=== PATIENT | female | born 1950 | race Caucasian/White ===

== ENCOUNTER → 2016-10-15 | Outpatient (CLI) | payer OTHER ==
--- NOTE | 2016-10-15 10:31 | REPMRS ---
Patient History The patient states she had a clinical breast exam in 10/11 Patient is postmenopausal and had first child at age 34. Family history of breast cancer in mother at age 66 and prostate cancer in brother at age 64. Taking unspecified hormones for 6 years. Digital Woman Screen Mammo: October 15, 2016 - Exam #: [id number] Bilateral CC and MLO view(s) were taken. Technologist: Sinai Hylton, Technologist Prior study comparison: October 13, 2015, digital woman screen mammo performed at [facility] to Woman. October 09, 2014, digital woman screen mammo performed at [facility] to Woman. October 02, 2013, digital woman screen mammo performed at [facility] to [facility]. FINDINGS: There are scattered fibroglandular densities. There is a moderate amount of residual fibroglandular tissue which is fairly symmetric. There is no interval development of dominant mass, architectural distortion, or clustered microcalcification typical of malignancy. There has been no change in the appearance of the mammogram from the prior studies. ASSESSMENT: BI-RADS/ACR category 1 mammogram. Negative. Recommendation Routine screening mammogram of both breasts in 1 year (for women over age 40). This mammogram was interpreted with the aid of an FDA-approved computer-aided dectection system. Electronically Signed By: Derrell Chadwick MD 10/15/16 0694
== END ==
LOC: M WHC 08:58
PROVIDERS: ATTEND Nurse Practitioner Family
DX: Z12.31 Encounter for screening mammogram for malignant neoplasm of breast (principal)

== ENCOUNTER 2017-04-15 07:16 | Day surgery (SDC) | payer OTHER ==
[~2017-04-15] VITALS: Ht 154.9 cm; Wt 56.2 kg
[~2017-04-15 07:16] MED LIST: B121000T IM; CYAN1000VL IM; LEVO100T5 PO; NASA1SPR
[2017-04-15] MEDS ORDERED: NS 1,000 ML IV SCH (07:30)
[2017-04-15] MEDS ORDERED: ESTR62CR PV (08:08)
--- NOTE | 2017-04-15 08:53 | ROOR ---
Patient Name: Shilpa Benavides Procedure Date: 04/15/2017 8:27 AM Date of : 1950 Age: 66 Room: [facility] Gender: Female Note Status: Finalized Procedure: Total Colonoscopy to Cecum Indications: Screening for colorectal malignant neoplasm, Last colonoscopy 10 years ago Providers: Brian Vela MD Referring MD: ORI KUMARI DO Requesting Provider: Medicines: Monitored Anesthesia Care Complications: No immediate complications. Procedure: Pre-Anesthesia Assessment: - The heart rate, respiratory rate, oxygen saturations, blood pressure, adequacy of pulmonary ventilation, and response to care were monitored throughout the procedure. The Colonoscope was introduced through the anus and advanced to the cecum, identified by appendiceal orifice and ileocecal valve. The colonoscopy was performed without difficulty. The patient tolerated the procedure well. The quality of the bowel preparation was excellent. Findings: The perianal and digital rectal examinations were normal. Non-bleeding internal hemorrhoids were found during retroflexion. The hemorrhoids were small and Grade I (internal hemorrhoids that do not prolapse). No other significant abnormalities were identified in a careful examination of the remainder of the colon. The exam was otherwise without abnormality on direct and retroflexion views. Impression: - Non-bleeding internal hemorrhoids. - The examination was otherwise normal on direct and retroflexion views. - No specimens collected. - The exam was otherwise normal to the cecum. Recommendation: - Patient has a contact number available for emergencies. The signs and symptoms of potential delayed complications were discussed with the patient. Return to normal activities tomorrow. Written discharge instructions were provided to the patient. - High fiber diet. - Discharge patient to home. - Continue present medications. - Repeat colonoscopy in 10 years for screening purposes. - Return to referring physician. - The findings and recommendations were discussed with the patient's family. Brian Vela MD Brian Vela MD 04/15/2017 8:52:36 AM This report has been signed electronically. Number of Addenda: 0 Note Initiated On: 04/15/2017 8:27 AM Estimated Blood Loss: Estimated blood loss: none.
[2017-04-15] MEDS ORDERED: PROPOFOL 200 MG/20 ML VIAL As Ordered ONE (09:01)
[2017-04-15 09:10] VITALS: BP 127/86
== END 2017-04-15 09:23 | disposition home or self-care (01) ==
LOC: M OPP 07:16 → EDSTATUS 08:30 → M OPP 09:23
PROVIDERS: ATTEND Internal Medicine Gastroenterology
DX: Z12.11 Encounter for screening for malignant neoplasm of colon (principal); K64.0 First degree hemorrhoids; E03.9 Hypothyroidism, unspecified; M19.90 Unspecified osteoarthritis, unspecified site; D64.9 Anemia, unspecified; Z78.0 Asymptomatic menopausal state; Z88.0 Allergy status to penicillin; Z88.2 Allergy status to sulfonamides; Z88.1 Allergy status to other antibiotic agents; Z79.899 Other long term (current) drug therapy; Z79.82 Long term (current) use of aspirin; Z80.3 Family history of malignant neoplasm of breast; Z80.42 Family history of malignant neoplasm of prostate

== ENCOUNTER → 2017-10-17 | Outpatient (REF) | payer OTHER | LOC: M SFHCWAGY 09:35 | DX: Z12.4 Encounter for screening for malignant neoplasm of cervix (principal) | CPT/HCPCS: G0123 ==

== ENCOUNTER → 2017-10-17 | Outpatient (CLI) | payer OTHER | LOC: M WHC 08:57 | DX: Z12.31 Encounter for screening mammogram for malignant neoplasm of breast (principal); M81.0 Age-related osteoporosis without current pathological fracture; Z13.820 Encounter for screening for osteoporosis; M85.80 Other specified disorders of bone density and structure, unspecified site; Z78.0 Asymptomatic menopausal state; Z80.3 Family history of malignant neoplasm of breast; Z92.29 Personal history of other drug therapy ==

== ENCOUNTER → 2018-10-24 | Outpatient (CLI) | payer MEDICARE, OTHER ==
[~2018-10-24] MED LIST changes: +ESTR62CR PV
--- NOTE | 2018-10-24 12:21 | REPMRS ---
Patient History The patient states she had a clinical breast exam in 09/2018. Patient is postmenopausal and had first child at age 34. Family history of breast cancer at age 66 in mother, prostate cancer at age 64 in brother. Taking unspecified hormones for 8 years. 3D TOMOSYNTHESIS WAS PERFORMED. Digital Woman Screen Mammo: October 24, 2018 - Exam #: [id number] Bilateral CC and MLO view(s) were taken. Technologist: Fatmata Bray, Technologist Prior study comparison: October 17, 2017, digital woman screen mammo performed at [facility]. October 15, 2016, digital woman screen mammo performed at [facility] [employer] to [facility]. FINDINGS: The breast tissue is heterogeneously dense. This may lower the sensitivity of mammography. There has been no change in the appearance of the mammogram from the prior studies. There is a moderate amount of residual fibroglandular tissue which is fairly symmetric. There is no interval development of dominant mass, areas of architectural distortion, or clustered microcalcification typical of malignancy. Assessment: BI-RADS/ACR category 1 mammogram. Negative Mammogram. Recommendation Routine screening mammogram in 1 year (for women over age 40). This mammogram was interpreted with the aid of an FDA-approved computer-aided dectection system. Electronically Signed By: Lauro Luis MD 10/24/18 2906
== END ==
LOC: M WHC 09:53
PROVIDERS: ATTEND Nurse Practitioner Family
DX: Z01.419 Encounter for gynecological examination (general) (routine) without abnormal findings (principal); Z12.31 Encounter for screening mammogram for malignant neoplasm of breast; Z78.0 Asymptomatic menopausal state; Z92.29 Personal history of other drug therapy; Z80.3 Family history of malignant neoplasm of breast
CPT/HCPCS: 77063; 77067; G0101

== ENCOUNTER → 2019-10-24 | Outpatient (CLI) | payer MEDICARE, BC ==
[~2019-10-24] MED LIST changes: +CALC600T60 PO; +D-40TAB2 PO; +ESTR0.1C5; +FISH1000 PO; +THERTAB52 PO
--- NOTE | 2019-10-24 11:47 | REPMRS ---
Patient History The patient states she had a clinical breast exam in September 2019. Patient is postmenopausal and had first child at age 34. Family history of breast cancer at age 66 in mother, prostate cancer at age 64 in brother. Taking unspecified hormones for 8 years. Digital Woman Screen Mammo: October 24, 2019 - Exam #: [id number] Bilateral CC and MLO view(s) were taken. Technologist: Li Montenegro, Technologist Prior study comparison: October 24, 2018, bilateral digital woman screen mammo performed at [facility]. October 17, 2017, digital woman screen mammo performed at [facility]. October 15, 2016, digital woman screen mammo performed at [facility]. FINDINGS: There are scattered fibroglandular densities. There has been no change in the appearance of the mammogram from the prior studies. There is a mild amount of scattered fibroglandular density which is fairly symmetric. There is no interval development of dominant mass, architectural distortion, or grouped microcalcification suggestive of malignancy. 3-D tomosynthesis shows no additional findings. Assessment: BI-RADS/ACR category 1 mammogram. Negative Mammogram. Recommendation Routine screening mammogram of both breasts in 1 year (for women over age 40). This patient's Lifetime Breast Cancer Risk is estimated at 18.5 %. This mammogram was interpreted with the aid of an FDA-approved computer-aided dectection system. Electronically Signed By: Derrell Chadwick MD 10/24/19 4480
--- NOTE | 2019-11-01 14:08 | DEXA ---
AP SPINE L1 - L4 1.183 -0.1 1.5 LT FEMUR TOTAL 0.895 -0.9 0.4 LT NECK 0.852 -1.3 0.2 RT FEMUR TOTAL 0.929 -0.6 0.7 RT NECK 0.865 -1.2 0.3 TOTAL BODY TOTAL OTHER COMMENTS: Normal bone densitometry of the spine. There is low bone density of the hips. The density of the spine is increased 5.4% since initial exam on 05/22/2003. The increased 1.4% since the most recent exam on 10/17/2017. The density of the left hip has decreased 10.1% since the initial exam on 05/22/2003. The density of the left hip has increased 0.2% since the most recent exam on 10/17/2017. The density of the right hip has decreased 11.0% since initial exam on 05/22/2003. The density of the right hip has decreased 2.2% since the most recent exam on 10/17/2012. FOLLOW-UP: Recommendation for the next bone density exam: 2 years. ANTHONY
== END ==
LOC: M WHC 09:53
PROVIDERS: ATTEND Nurse Practitioner Family
DX: Z12.31 Encounter for screening mammogram for malignant neoplasm of breast (principal); Z78.0 Asymptomatic menopausal state; Z90.3 Acquired absence of stomach [part of]; Z80.42 Family history of malignant neoplasm of prostate; Z92.29 Personal history of other drug therapy
CPT/HCPCS: 77063; 77067; 77080; G0463

== ENCOUNTER → 2020-05-12 | Outpatient (CLI) | payer MEDICARE, BC ==
[~2020-05-12] MED LIST changes: -CALC600T60 PO; -D-40TAB2 PO; -ESTR0.1C5; -FISH1000 PO; -THERTAB52 PO
--- NOTE | 2020-05-12 17:00 | REP ---
INDICATION: N95.0 POST MENOPAUSAL BLEEDING. COMPARISON: 10/03/2007 TECHNIQUE: Transvesical and transvaginal imaging FINDINGS: The uterus measures 7.4 x 3.3 x 5.2 cm. The parenchymal echo pattern is within normal limits. The endometrial echo complex is mildly thickened measuring 1 cm in thickness and is somewhat heterogenous. The right ovary measures 1.8 x 0.8 x 1.8 cm and is within normal limits. The left ovary was not seen transvesically or transvaginally. There is no free fluid in the cul-de-sac. The urinary bladder measures 7.4 x 9.2 x 7.2 centimeters. IMPRESSION: 1. Mildly thickened endometrium as described above. 2. Nonvisualization of the left ovary. <Electronically signed by Vincent Patel > 05/12/20 7975
== END ==
LOC: M WHC 13:15
PROVIDERS: ATTEND Nurse Practitioner Family
DX: N95.0 Postmenopausal bleeding (principal)

== ENCOUNTER → 2020-07-27 | Outpatient (CLI) | payer MEDICARE, BC ==
[~2020-07-27] MED LIST changes: +CALC600T60 PO; +D-40TAB2 PO; +ESTR0.1C5; +FISH1000 PO; +THERTAB52 PO
== END ==
LOC: M LABSMTC 09:33
PROVIDERS: ATTEND Anesthesiology
DX: Z01.812 Encounter for preprocedural laboratory examination (principal); Z20.822 Contact with and (suspected) exposure to COVID-19

== ENCOUNTER 2020-08-01 08:21 | Day surgery (SDC) | payer MEDICARE, BC ==
[~2020-08-01] VITALS: Ht 154.9 cm; Wt 56.2 kg
[~2020-08-01 08:21] MED LIST changes: -CALC600T60 PO; -D-40TAB2 PO; -ESTR0.1C5; -FISH1000 PO; +LR 1,000 ML IV ONE
--- OUTSIDE RECORDS SUMMARY | 2020-08-01 08:30 | CCD ---
Author Author [facility] Organization [facility] Address Unknown Phone Unavailable Care Team Providers Care Beer Coil Cleaner Name Role Phone Arielle Lyons Unavailable PROBLEMS Type Condition ICD9-CM Code [id number] Code Onset Dates Condition S tatus SNOMED Code Notes Problem Unspecified hypothyroidism E03.9 Active 23851 008 Problem Post-menopause bleeding N95.0 Active 14125473 Problem Endometrial thickening on ultrasound R93.89 Act earl 112761859 Problem Senile osteoporosis M81.0 Active 02331726 Problem Osteoporosis M81.0 Active 53865518 Problem Vaginal atrophy N95.2 Active 724570837 Problem Vulvodynia, 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 Active 31159341 9 ALLERGIES Allergen (clinical drug ingredient) Drug/Non Drug Allergy do cumented on EMR Reaction Allergy Type Onset Date Status clindamycin Clindamycin HCl([facility] Code:[address]-72) Nausea/V omiting Drug Allergy Active Sulfa (for allergy use only) hives Drug Allergy Active Penicillin (For Allergies Use Only) Hives Drug Allerg y Active erythromycin Erythromycin(ND Code:[address]-85) abdominal c ramps, diarrhea Drug Allergy Active ENCOUNTERS from 1950 to 2020-07-14 Encounter Location Date Provider Diagnosis [facility] [address] [place] [phone] Jun, Arielle Lyons IMMUNIZATIONS No Information SOCIAL HISTORY Tobacco Use: Social History Observation Description Date Details (start date - stop date) Never Smoker Sex Assigned At : Social History Observation Description Sex Assigned At Unknown Alcohol Screening: Question Answer Notes Did you have a drink containing alcohol in the past year? Ye s Points 3 Interpretation Positive How often did you have six or more drinks on one occas ion in the past year? Never (0 points) How many drinks did you have on a typica l day when you were drinking in the past year? 1 or 2 (0 points) How often did you have a drink containing alcohol in t he past year? Two to three times per week (3 points) Tobacco Use: Question Answer Notes Are you a: never smoker never smoker REASON FOR REFERRAL No Information VITAL SIGNS No information MEDICATIONS Medication SIG (Take, Route, Frequency, Duration) Notes Start Da te End Date Status Vitamin D-400 400 UNIT 1 capsules Orally Once a day Active Premarin 0.625 MG/GM 1/2 gram Vaginal 2 x weekly @ hs for 90 day s Sep, Not-Taking Multivitamins OTC 1 tab(s) Orally every other day Active Vitamin B12 1000 MCG 1 tablet Orally Once a day for 30 day(s) Not-Taking Nasonex 50 MCG/ACT 2 puffs in each nostril Nasally as needed for 30 day(s) Not-Taking Vitamin B-12 1000 MCG injection IM monthly Not-Taking Fish Oil 1000 mg 1 cap(s) Orally three times weekly Active Caltrate 600+D 600-400 MG-UNIT 1 tablet Orally daily for 30 day(s) Active Aspirin EC 81 MG 1 tablet Orally every other day for 30 day(s) Not-Taking Estradiol 0.1 MG/GM 1/2 gm Vaginal Two times a Week for 90 days Sep, Not-Taking Levothyroxine Sodium 100 MCG 1 tab(s) Orally once a day Active Lotrisone 1-0.05 % 1 application to vulva Exter evelyn perineum Twice a day, for 7 days Sep, Active Premarin 0.625 MG/GM 1 GM Vaginal twice a week for 90 day(s) Not-Taking Nasacort AQ Active Vitamin B12 1000 MCG 1 tablet Orally Once a day for 30 day(s) Active PredniSONE (Andrew) Not-Taki ng PROCEDURES No Information RESULTS No Results REASON FOR VISIT AUTHORIZATION MEDICAL (GENERAL) HISTORY Type Description Date Medical History hypothyroidism Medical History B 12 deficiency Medical History vaginismus Medical History osteoporosis, hips Medical History rosacea Medical History lifetime breast cancer risk 20.2 % decl ammy annual MRI Surgical History C section Surgical History fracture repair-left foot Surgical History cholecystectomy Surgical History umbilical hernia repair Surgical History LEEP and EMB 2001 Surgical History colonoscopy 2006, 2016 Surgical History colposcopy Goals Section No Information Health Concerns No Information MEDICAL EQUIPMENT No Information MENTAL STATUS No Information FUNCTIONAL STATUS No Information ASSESSMENTS No Information PLAN OF TREATMENT Next Appt Details Provider Name:Arielle Lyons, 2020-08-01 1 0:00:00 AM, [address] [place] [address], [phone], Provider Name:Arielle Lyons, 2020-08-27 0 2:40:00 PM, [address] [place] [address], [phone], Provider Name:Shelley Melo, 2020-10-23 09:30:00 AM, [address] [place] [address], [phone], Insurance Providers Payer Name Payer Address Payer Phone Insured Name Patient Relati onship to Insured Coverage Start Date Coverage End Date [employer] PPO [id number] [address] PRERNA TUCKER MEDICARE Part A and B [address] [place] [phone] PRERNA TUCKER self
--- OUTSIDE RECORDS SUMMARY | 2020-08-01 08:30 | CCD ---
Author Author [facility] Organization [facility] Address Unknown Phone Unavailable Care Team Providers Care Detention Attendant Name Role Phone Shelley Melo Unavailable PROBLEMS Type Condition ICD9-CM Code [id number] Code Onset Dates Condition S tatus SNOMED Code Notes Problem Unspecified hypothyroidism E03.9 Active 21883 008 Problem Post-menopause bleeding N95.0 Active 11208597 Problem Endometrial thickening on ultrasound R93.89 Act earl 066244832 Problem Senile osteoporosis M81.0 Active 98153522 Problem Osteoporosis M81.0 Active 32918849 Problem Vaginal atrophy N95.2 Active 912796638 Problem Vulvodynia, 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 Active 65963579 9 ALLERGIES Allergen (clinical drug ingredient) Drug/Non Drug Allergy do cumented on EMR Reaction Allergy Type Onset Date Status clindamycin Clindamycin HCl([facility] Code:[address]-44) Nausea/V omiting Drug Allergy Active Sulfa (for allergy use only) hives Drug Allergy Active Penicillin (For Allergies Use Only) Hives Drug Allerg y Active erythromycin Erythromycin(ND Code:[address]-43) abdominal c ramps, diarrhea Drug Allergy Active ENCOUNTERS from 1950 to 2020-06-09 Encounter Location Date Provider Diagnosis [facility] [address] [place] [phone] May, Shelley Melo IMMUNIZATIONS No Information SOCIAL HISTORY Tobacco Use: Social History Observation Description Date Details (start date - stop date) Never Smoker Sex Assigned At : Social History Observation Description Sex Assigned At Unknown Education: Question Answer Notes Level of Education: Graduate Language: Question Answer Notes Languages spoken: Amharic Sikh: Question Answer Notes Sikh 21 Religion Alcohol Screening: Question Answer Notes Did you [...] Notes Start Da te End Date Status PredniSONE (Andrew) Not-Taki ng Levothyroxine Sodium 125 MCG 1 tab(s) Orally once a day Active Vitamin D-400 400 UNIT 1 capsules Orally Once a day Active Caltrate 600+D 600-400 MG-UNIT 1 tablet Orally daily for 30 day(s) Active Vitamin B12 1000 MCG 1 tablet Orally Once a day for 30 day(s) Active Vitamin B12 1000 MCG 1 tablet Orally Once a day for 30 day(s) Not-Taking Lotrisone 1-0.05 % 1 application to vulva Exter evelyn perineum Twice a day, for 7 days Sep, Active Fish Oil 1000 mg 1 cap(s) Orally three times weekly Active Vitamin B-12 1000 MCG injection IM monthly Not-Taking Premarin 0.625 MG/GM 1 GM Vaginal twice a week for 90 day(s) Not-Taking Estradiol 0.1 MG/GM 1/2 gm Vaginal Two times a Week for 90 days Sep, Active Aspirin EC 81 MG 1 tablet Orally every other day for 30 day(s) Not-Taking Nasonex 50 MCG/ACT 2 puffs in each nostril Nasally as needed for 30 day(s) Not-Taking Nasacort AQ Active Multivitamins OTC 1 tab(s) Orally every other day Active Premarin 0.625 MG/GM 1/2 gram Vaginal 2 x weekly @ for 90 day s Sep, Not-Taking PROCEDURES No Information RESULTS No Results REASON FOR VISIT Estradiol use MEDICAL (GENERAL) HISTORY Type Description Date Medical History hypothyroidism Medical History B 12 deficiency Medical History vaginismus Medical History osteoporosis, hips Medical History rosacea Medical History lifetime breast cancer risk 20.2 % decl ammy annual MRI Surgical History C section Surgical History fracture repair-left foot Surgical History cholecystectomy Surgical History umbilical hernia repair Surgical History LEEP and EMB 2002 Surgical History colonoscopy 2006, 2016 Surgical History colposcopy Goals Section No Information Health Concerns No Information MEDICAL EQUIPMENT No Information MENTAL STATUS No Information FUNCTIONAL STATUS No Information ASSESSMENTS No Information PLAN OF TREATMENT Next Appt Details Provider Name:Arielle Lyons, 2020-07-07 1 2:00:00 AM, [address] [place] [address], [phone], Provider Name:Shelley Lorie, 2020-10-23 09:30:00 AM, [address] [place], [phone], Insurance Providers Payer Name Payer Address Payer Phone Insured Name Patient Relati onship to Insured Coverage Start Date Coverage End Date [employer] PPO [phone] [address] PRERNA TUCKER MEDICARE Part A and B [facility] [address] [place] [phone] PRERNA TUCKER
--- OUTSIDE RECORDS SUMMARY | 2020-08-01 08:30 | CCD ---
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 Active 16909288 9 Problem Post-menopause bleeding N95.0 Active 82368068 Problem Unspecified hypothyroidism E03.9 Active 07200 008 Problem Senile osteoporosis M81.0 Active 68725320 Problem Osteoporosis M81.0 Active 78511482 Problem Vaginal atrophy N95.2 Active 094155748 ALLERGIES Allergen (clinical drug ingredient) Drug/Non Drug Allergy do cumented on EMR Reaction Allergy Type Onset Date Status clindamycin Clindamycin HCl([facility] Code:[address]-60) Nausea/V omiting Drug Allergy Active Sulfa (for allergy use only) hives Drug Allergy Active Penicillin (For Allergies Use Only) Hives Drug Allerg y Active erythromycin Erythromycin(ND Code:[address]-59) abdominal c ramps, diarrhea Drug Allergy Active ENCOUNTERS from 1950 to 2020-05-20 Encounter Location Date Provider Diagnosis [facility] [address] [place] [phone] Apr, Shelley Melo Post-menopause bleed ing N95.0 ; Vaginal discharge N89.8 and Vaginal atrophy N95.2 IMMUNIZATIONS No Information SOCIAL HISTORY Tobacco Use: Social History Observation Description Date Details (start date - stop date) Never Smoker Sex Assigned At : Social History Observation Description Sex Assigned At Unknown Education: Question Answer Notes Level of Education: Graduate Language: Question Answer Notes Languages spoken: Polish Sabianist: Question Answer Notes Sabianist 21 Catholic Alcohol Screening: Question Answer Notes Did you [...] REASON FOR REFERRAL No Information VITAL SIGNS Weight 123 lbs Apr, Height 61 1/4 in Apr, BMI 23.05 kg/m2 Apr, Blood pressure systolic 132 mm Hg Apr, Blood pressure diastolic 80 mm Hg Apr, MEDICATIONS Medication SIG (Take, Route, Frequency, Duration) [...] s Sep, Not-Taking PROCEDURES No Information RESULTS Component Value Reference Range WET PREP Reviewed date:05/08/2020 13:58:08 Interpretation:Normal atrophic Performing Lab:[facility] [place] [address] whiff n Clue Cells n PH 5 Trichomoniads n WET PREP Hypae n Lactobacillus pos RBC neg WBC pos WWBC Pelvis non-OB COMPLETE US Reviewed date:05/15/2020 08:18:08 Interpretation:thickened endometrium Performing Lab:[facility],[address] ,[place] [address] REASON FOR VISIT BLEEDING? MEDICAL (GENERAL) HISTORY Type Description Date Medical [...] No Information FUNCTIONAL STATUS No Information ASSESSMENTS Encounter Date Diagnosis Assessment Notes Treatment Notes Treatm ent Clinical Notes Apr, Post-menopause bleeding (ICD-10 - N95.0) Pelvic sonogram to rule out endometrial thickening Apr, Vaginal discharge (ICD-10 - N89.8) Apr, Vaginal atrophy (ICD-10 - N95.2) Likely spotty mucoid blood from atrohpy PLAN OF TREATMENT Treatment Notes Assessment Notes Clinical Notes Post-menopause bleeding Pelvic sonogram to rule out endometrial thickening Vaginal atrophy Likely spotty mucoid blood from atrohpy Next Appt Details after sonogram Reason: Provider Name:Shelley Melo 2020-06-04 11:30:00 AM, [address] [place], [phone], Provider Name:Shelley Melo 2020-10-23 09:30:00 AM, [address] [place], [phone], Insurance Providers Payer Name Payer Address Payer Phone Insured Name Patient Relati onship to Insured Coverage Start Date Coverage End Date MEDICARE Part A and B [facility] [address] [place] [phone] PRERNA TUCKER [facility] [facility] PPO [id number] [place] [id number] PRERNA TUCKER
--- OUTSIDE RECORDS SUMMARY | 2020-08-01 08:30 | CCD ---
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 Active 67413477 9 Problem Post-menopause bleeding N95.0 Active 90241914 Problem Unspecified hypothyroidism E03.9 Active 78112 008 Problem Senile osteoporosis M81.0 Active 76533851 Problem Osteoporosis M81.0 Active 00772838 Problem Vaginal atrophy N95.2 Active 860334360 ALLERGIES Allergen (clinical drug ingredient) Drug/Non Drug Allergy do cumented on EMR Reaction Allergy Type Onset Date Status clindamycin Clindamycin HCl([facility] Code:[address]-82) Nausea/V omiting Drug Allergy Active Sulfa (for allergy use only) hives Drug Allergy Active Penicillin (For Allergies Use Only) Hives Drug Allerg y Active erythromycin Erythromycin(ND Code:[address]-55) abdominal c ramps, diarrhea Drug Allergy Active ENCOUNTERS from 1950 to 2020-05-09 Encounter Location Date Provider Diagnosis [facility] [address] [place] [phone] Apr, Shelley Melo IMMUNIZATIONS No Information SOCIAL HISTORY Tobacco Use: Social History Observation Description Date Details (start date - stop date) Never Smoker Sex Assigned At : Social History Observation Description Sex Assigned At Unknown Education: Question Answer Notes Level of Education: Graduate Language: Question Answer Notes Languages spoken: Chadian Yarsanism: Question Answer Notes Yarsanism 21 Yazidi Alcohol Screening: Question Answer Notes Did you [...] MEDICATIONS Medication SIG (Take, Route, Frequency, Duration) Start Date En d Date Status PredniSONE (Andrew) Not-Taking Levothyroxine Sodium 125 MCG 1 tab(s) Orally [...] Information RESULTS No Results REASON FOR VISIT Update Demographics - Personal Info MEDICAL (GENERAL) HISTORY Type Description Date Medical History hypothyroidism Medical History B 12 deficiency Medical History vaginismus Medical History osteoporosis, hips Medical History rosacea Medical History lifetime breast cancer risk 20.2 % decl ammy annual MRI Surgical History C section Surgical History fracture repair-left foot Surgical History cholecystectomy Surgical History umbilical hernia repair Surgical History LEEP and EMB 2002 Surgical History colonoscopy 2006, 2017 Surgical History colposcopy Goals Section No Information Health Concerns No Information MEDICAL EQUIPMENT No Information MENTAL STATUS No Information FUNCTIONAL STATUS No Information ASSESSMENTS No Information PLAN OF TREATMENT Next Appt Details Provider Name:Shelley Melo, 2020-10-23 09:30:00 AM, [address] [place], [phone], Insurance Providers Payer Name Payer Address Payer Phone Insured Name Patient Relati onship to Insured Coverage Start Date Coverage End Date [employer] PPO [phone] [address] PRERNA TUCKER MEDICARE Part A and B [facility] [address] [place] [phone] PRERNA TUCKER self
--- OUTSIDE RECORDS SUMMARY | 2020-08-01 08:30 | CCD ---
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 Name Role Phone Arielle Lyons Unavailable PROBLEMS Type Condition ICD9-CM Code [id number] Code Onset Dates Condition S tatus SNOMED Code Notes Problem Unspecified hypothyroidism E03.9 Active 45736 008 Problem Post-menopause bleeding N95.0 Active 70540784 Problem Endometrial thickening on ultrasound R93.89 Act earl 915244510 Problem Senile osteoporosis M81.0 Active 58050685 Problem Osteoporosis M81.0 Active 56827149 Problem Vaginal atrophy N95.2 Active 910409384 Problem Vulvodynia, 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 Active 08673972 9 ALLERGIES Allergen (clinical drug ingredient) Drug/Non Drug Allergy do cumented on EMR Reaction Allergy Type Onset Date Status clindamycin Clindamycin HCl([facility] Code:[address]-89) Nausea/V omiting Drug Allergy Active Sulfa (for allergy use only) hives Drug Allergy Active Penicillin (For Allergies Use Only) Hives Drug Allerg y Active erythromycin Erythromycin(ND Code:[address]-85) abdominal c ramps, diarrhea Drug Allergy Active ENCOUNTERS from 1950 to 2020-07-16 Encounter Location Date Provider Diagnosis [facility] [address] [place] [phone] Jun, Arielle Eloy Post-menopause bleed ing N95.0 IMMUNIZATIONS No Information SOCIAL HISTORY Tobacco Use: [...] FOR REFERRAL No Information VITAL SIGNS Weight 124 lbs Jun, Height 61 in Jun, BMI 23.43 kg/m2 Jun, Blood pressure systolic 144 mm Hg Jun, Blood pressure diastolic 86 mm Hg Jun, MEDICATIONS Medication SIG (Take, Route, Frequency, Duration) [...] Information RESULTS No Results REASON FOR VISIT CONSULT PMB PER SHELLEY MEDICAL (GENERAL) HISTORY Type Description Date Medical History hypothyroidism Medical History B 12 deficiency Medical History vaginismus Medical History osteoporosis, hips Medical History rosacea Medical History lifetime breast cancer risk 20.2 % decl ammy annual MRI Surgical History C section Surgical History fracture repair-left foot Surgical History cholecystectomy Surgical History umbilical hernia repair Surgical History LEEP and EMB 2002 Surgical History colonoscopy 2016 Surgical History colposcopy Goals Section No Information Health Concerns No Information MEDICAL EQUIPMENT No Information MENTAL STATUS No Information FUNCTIONAL STATUS No Information ASSESSMENTS Encounter Date Diagnosis Assessment Notes Treatment Notes Treatm ent Clinical Notes Jun, Post-menopause bleeding (ICD-10 - N95.0) Procedure: Hysteroscopy, myosure and D&CSurgeon: Arielle Lyons MD Patient has been counseling regarding the risks of the procedure to include anesthesia risks to include , bleeding/need for blood transfusion, infection, damage to internal organs, uterine perforation, postoperative pain and need for future surgery based on findings today. She understands these risks and wishes to proceed with the above procedure. >50% of this appt spent counselling ( 25mins) Pre-Operative Counseling PLAN OF TREATMENT Treatment Notes Assessment Notes Clinical Notes Post-menopause bleeding Procedure: Hyste roscopy, myosure and D&CSurgeon: Arielle Lyons MD Patient has been counseling regarding the risks of the procedure to include anesthesia risks to include , bleeding/need for blood transfusion, infection, damage to internal organs, uterine perforation, postoperative pain and need for future surgery based on findings today. She understands these risks and wishes to proceed with the above procedure. >50% of this appt spent counselling ( 25mins) Pre-Operative Counseling Next Appt Details Provider Name:Arielle Lyons, 2020-08-01 1 0:00:00 AM, [address] [place] [address], [phone], Provider Name:Arielle Lyons, 2020-08-27 0 2:40:00 PM, [address] [place] [address], [phone], Provider Name:Shelley Melo, 2020-10-23 09:30:00 AM, [address] [place] [address], [phone], Insurance Providers Payer Name Payer Address Payer Phone Insured Name Patient Relati onship to Insured Coverage Start Date Coverage End Date [employer] PPO [address] [id number] PRERNA TUCKER MEDICARE Part A and B [address] [place] [phone] PRERNA TUCKER
--- OUTSIDE RECORDS SUMMARY | 2020-08-01 08:30 | CCD ---
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 Role Phone Shelley Melo Unavailable PROBLEMS Type Condition ICD9-CM Code NFT80-WO Code Onset Dates Condition S tatus SNOMED Code Notes Problem Unspecified hypothyroidism E03.9 Active 42648 008 Problem Post-menopause bleeding N95.0 Active 24918979 Problem Endometrial thickening on ultrasound R93.89 Act earl 037547175 Problem Senile osteoporosis M81.0 Active 01364007 Problem Osteoporosis M81.0 Active 55683563 Problem Vaginal atrophy N95.2 Active 037597667 Problem Vulvodynia, 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 Active 52714265 9 ALLERGIES Allergen (clinical drug ingredient) Drug/Non Drug Allergy do cumented on EMR Reaction Allergy Type Onset Date Status clindamycin Clindamycin HCl([facility] Code:[address]-28) Nausea/V omiting Drug Allergy Active Sulfa (for allergy use only) hives Drug Allergy Active Penicillin (For Allergies Use Only) Hives Drug Allerg y Active erythromycin Erythromycin(ND Code:[address]-31) abdominal c ramps, diarrhea Drug Allergy Active ENCOUNTERS from 1950 to 2020-06-05 Encounter Location Date Provider Diagnosis [facility] [address] [place] [phone] May, Shelley Melo Post-menopause bleed ing N95.0 and Endometrial thickening on ultrasound R93.89 IMMUNIZATIONS No Information SOCIAL HISTORY Tobacco Use: Social History Observation Description Date Details (start date - stop date) Never Smoker Sex Assigned At : Social History Observation Description Sex Assigned At Unknown Education: Question Answer Notes Level of Education: Graduate Language: Question Answer Notes Languages spoken: Maori Jain: Question Answer Notes Jain 21 Holiness Alcohol Screening: Question Answer Notes Did you [...] No Information VITAL SIGNS Weight 123 lbs May, Weight-kg 55.79 kg May, Height 61 in May, BMI 23.24 kg/m2 May, Blood pressure systolic 145 mm Hg May, Blood pressure diastolic 80 mm Hg May, MEDICATIONS Medication SIG (Take, Route, Frequency, Duration) [...] hs for 90 day s Sep, Not-Taking PROCEDURES No Information RESULTS No Results REASON FOR VISIT EMBX MEDICAL (GENERAL) HISTORY Type Description Date Medical [...] Notes Treatment Notes Treatm ent Clinical Notes May, Post-menopause bleeding (ICD-10 - N95.0) Pelvic sonogram to rule out endometrial thickening May, Endometrial thickening on ultrasound (ICD-10 - R 93.89) PLAN OF TREATMENT Treatment Notes Assessment Notes Clinical Notes Post-menopause bleeding Pelvic sonogram to rule out endometrial thickening Next Appt Details Provider Name:Arielle Hung Cartwrightn, 2020-07-07 1 2:00:00 AM, [address] [place] [address], [phone], Provider Name:Shelley Lorie, 2020-10-23 09:30:00 AM, [address] [place] [address], [phone], Insurance Providers Payer Name Payer Address Payer Phone Insured Name Patient Relati onship to Insured Coverage Start Date Coverage End Date [employer] PPO [phone] [address] PRERNA TUCKER MEDICARE Part A and B [facility] [address] [place] [phone] PRERNA TUCKER
--- OUTSIDE RECORDS SUMMARY | 2020-08-01 08:31 | CCD ---
Author Author [facility] Organization [facility] Address Unknown Phone Unavailable Care Team Providers Care Sales Consulting Director Name Role Phone DIBBEN, S DONNA PA Unavailable Unavailable DIBBEN, S DONNA PA Unavailable Unavailable DIBBEN, S DONNA PA Unavailable Unavailable DIBBEN, S DONNA PA Unavailable Unavailable DIBBEN, S DONNA PA Unavailable Unavailable DIBBEN, S DONNA PA Unavailable Unavailable DIBBEN, S DONNA PA Unavailable Unavailable DIBBEN, S DONNA PA Unavailable Unavailable DIBBEN, S DONNA PA Unavailable Unavailable DIBBEN, S DONNA PA Unavailable Unavailable DIBBEN, S DONNA PA Unavailable Unavailable DIBBEN, S DONNA PA Unavailable Unavailable Barraclough, Cindy PA Unavailable Unavailable Barraclough, Cindy PA Unavailable Unavailable Barraclough, Cindy PA Unavailable Unavailable Barraclough, Cindy PA Unavailable Unavailable Barraclough, Cindy PA Unavailable Unavailable Barraclough, Cindy PA Unavailable Unavailable Fish, J Leighton Unavailable Unavailable Fish, J Leighton Unavailable Unavailable Fish, J Leighton Unavailable Unavailable Fish, J Leighton Unavailable Unavailable Fish, J Leighton Unavailable Unavailable Fish, J Leighton Unavailable Unavailable Fish, J Leighton Unavailable Unavailable Fish, J Leighton Unavailable Unavailable Fish, J Leighton Unavailable Unavailable Fish, J Leighton Unavailable Unavailable Fish, J Leighton Unavailable Unavailable Fish, J Leighton Unavailable Unavailable Fish, J Leighton Unavailable Unavailable Fish, J Leighton Unavailable Unavailable Fish, J Leighton Unavailable Unavailable Fish, J Leighton Unavailable Unavailable Fish, J Leighton Unavailable Unavailable Fish, J Leighton Unavailable Unavailable Fish, J Leighton Unavailable Unavailable Fish, J Leighton Unavailable Unavailable Fish, J Leighton Unavailable Unavailable Fish, J Leighton Unavailable Unavailable Fish, J Leighton Unavailable Unavailable Fish, J Leighton Unavailable Unavailable Fish, J Leighton Unavailable Unavailable Fish, J Leighton Unavailable Unavailable Fish, J Leighton Unavailable Unavailable Fish, J Leighton Unavailable Unavailable Fish, J Leighton Unavailable Unavailable Fish, J Leighton Unavailable Unavailable Fish, J Leighton Unavailable Unavailable Fish, J Leighton Unavailable Unavailable Fish, J Leighton Unavailable Unavailable Fish, J Leighton Unavailable Unavailable Fish, J Leighton Unavailable Unavailable Fish, J Leighton Unavailable Unavailable Fish, J Leighton Unavailable Unavailable Fish, J Leighton Unavailable Unavailable Fish, J Leighton Unavailable Unavailable Fish, J Leighton Unavailable Unavailable Fish, J Leighton Unavailable Unavailable Fish, J Leighton Unavailable Unavailable Fish, J Leighton Unavailable Unavailable Fish, J Leighton Unavailable Unavailable Fish, J Leighton Unavailable Unavailable Fish, J Leighton Unavailable Unavailable Fish, J Leighton Unavailable Unavailable Fish, J Leighton Unavailable Unavailable Fish, J Leighton Unavailable Unavailable Fish, J Leighton Unavailable Unavailable Fish, J Leighton Unavailable Unavailable Fish, J Leighton Unavailable Unavailable Fish, J Leighton Unavailable Unavailable Fish, J Leighton Unavailable Unavailable Fish, J Leighton Unavailable Unavailable Fish, J Leighton Unavailable Unavailable Fish, J Leighton Unavailable Unavailable Fish, J Leighton Unavailable Unavailable Fish, J Leighton Unavailable Unavailable Fish, J Leighton Unavailable Unavailable Fish, J Leighton Unavailable Unavailable Fish, J Leighton Unavailable Unavailable Fish, J Leighton Unavailable Unavailable Fish, J Leighton Unavailable Unavailable Fish, J Leighton Unavailable Unavailable Fish, J Leighton Unavailable Unavailable Fish, J Leighton Unavailable Unavailable Fish, J Leighton Unavailable Unavailable Fish, J Leighton Unavailable Unavailable Fish, J Leighton Unavailable Unavailable Fish, J Leighton Unavailable Unavailable Fish, J Leighton Unavailable Unavailable Fish, J Leighton Unavailable Unavailable Fish, J Leighton Unavailable Unavailable Fish, J Leighton Unavailable Unavailable Fish, J Leighton Unavailable Unavailable Fish, J Leighton Unavailable Unavailable Fish, J Leighton Unavailable Unavailable Fish, J Leighton Unavailable Unavailable Fish, J Leighton Unavailable Unavailable Fish, J Leighton Unavailable Unavailable Fish, J Leighton Unavailable Unavailable Fish, J Leighton Unavailable Unavailable Fish, J Leighton Unavailable Unavailable Fish, J Leighton Unavailable Unavailable Swatsworth, A Roel PA Unavailable Unavailable Swatsworth, A Roel PA Unavailable Unavailable Swatsworth, A Roel PA Unavailable Unavailable Swatsworth, A Roel PA Unavailable Unavailable Swatsworth, A Roel PA Unavailable Unavailable Swatsworth, A Roel PA Unavailable Unavailable Swatsworth, A Roel PA Unavailable Unavailable Swatsworth, A Roel PA Unavailable Unavailable Swatsworth, A Roel PA Unavailable Unavailable Swatsworth, A Roel PA Unavailable Unavailable Swatsworth, A Roel PA Unavailable Unavailable Swatsworth, A Roel PA Unavailable Unavailable Swatsworth, A Roel PA Unavailable Unavailable Swatsworth, A Roel PA Unavailable Unavailable DIBBEN, S DNONA PA Unavailable Unavailable DIBBEN, S DONNA PA Unavailable Unavailable DIBBEN, S DONNA PA Unavailable Unavailable DIBBEN, S DONNA PA Unavailable Unavailable DIBBEN, S DONNA PA Unavailable Unavailable DIBBEN, S DONNA PA Unavailable Unavailable DIBBEN, S DONNA PA Unavailable Unavailable DIBBEN, S DONNA PA Unavailable Unavailable DIBBEN, S DONNA PA Unavailable Unavailable DIBBEN, S DONNA PA Unavailable Unavailable DIBBEN, S DONNA PA Unavailable Unavailable Fish, J Leighton Unavailable Unavailable Fish, J Leighton Unavailable Unavailable Fish, J Leighton Unavailable Unavailable Fish, J Leighton Unavailable Unavailable Fish, J Leighton Unavailable Unavailable Fish, J Leighton Unavailable Unavailable Fish, J Leighton Unavailable Unavailable Fish, J Leighton Unavailable Unavailable Fish, J Leighton Unavailable Unavailable Fish, J Leighton Unavailable Unavailable Fish, J Leighton Unavailable Unavailable Fish, J Leighton Unavailable Unavailable Fish, J Leighton Unavailable Unavailable Fish, J Leighton Unavailable Unavailable Fish, J Leighton Unavailable Unavailable Fish, J Leighton Unavailable Unavailable Fish, J Leighton Unavailable Unavailable Fish, J Leighton Unavailable Unavailable Fish, J Leighton Unavailable Unavailable Fish, J Leighton Unavailable Unavailable Fish, J Leighton Unavailable Unavailable Fish, J Leighton Unavailable Unavailable Fish, J Leighton Unavailable Unavailable Fish, J Leighton Unavailable Unavailable Fish, J Leighton Unavailable Unavailable Fish, J Leighton Unavailable Unavailable Fish, J Leighton Unavailable Unavailable Fish, J Leighton Unavailable Unavailable Fish, J Leighton Unavailable Unavailable Fish, J Leighton Unavailable Unavailable Fish, J Leighton Unavailable Unavailable Fish, J Leighton Unavailable Unavailable Fish, J Leighton Unavailable Unavailable Fish, J Leighton Unavailable Unavailable Fish, J Leighton Unavailable Unavailable Fish, J Leighton Unavailable Unavailable Fish, J Leighton Unavailable Unavailable Fish, J Leighton Unavailable Unavailable Fish, J Leighton Unavailable Unavailable Fish, J Leighton Unavailable Unavailable Fish, J Leighton Unavailable Unavailable Fish, J Leighton Unavailable Unavailable Fish, J Leighton Unavailable Unavailable Fish, J Leighton Unavailable Unavailable Fish, J Leighton Unavailable Unavailable Fish, J Leighton Unavailable Unavailable Fish, J Leighton Unavailable Unavailable Fish, J Leighton Unavailable Unavailable Fish, J Leighton Unavailable Unavailable Fish, J Leighton Unavailable Unavailable Fish, J Leighton Unavailable Unavailable Fish, J Leighton Unavailable Unavailable Fish, J Leighton Unavailable Unavailable Fish, J Leighton Unavailable Unavailable Fish, J Leighton Unavailable Unavailable Fish, J Leighton Unavailable Unavailable Fish, J Leighton Unavailable Unavailable Fish, J Leighton Unavailable Unavailable Fish, J Leighton Unavailable Unavailable Fish, J Leighton Unavailable Unavailable Fish, J Leighton Unavailable Unavailable Fish, J Leighton Unavailable Unavailable Fish, J Leighton Unavailable Unavailable Fish, J Leighton Unavailable Unavailable Fish, J Leighton Unavailable Unavailable Fish, J Leighton Unavailable Unavailable Fish, J Legihton Unavailable Unavailable Fish, J Leighton Unavailable Unavailable Fish, J Leighton Unavailable Unavailable Fish, J Leighton Unavailable Unavailable Fish, J Leighton Unavailable Unavailable Fish, J Leighton Unavailable Unavailable Fish, J Leighton Unavailable Unavailable Fish, J Leighton Unavailable Unavailable Fish, J Leighton Unavailable Unavailable Fish, J Leighton Unavailable Unavailable Fish, J Leighton Unavailable Unavailable Fish, J Leighton Unavailable Unavailable Fish, J Leighton Unavailable Unavailable Fish, J Leighton Unavailable Unavailable Fish, J Leighton Unavailable Unavailable Fish, J Leighton Unavailable Unavailable Fish, J Leighton Unavailable Unavailable Fish, J Leighton Unavailable Unavailable Fish, J Leighton Unavailable Unavailable Re-disclosure Warning The records that you are about to access may contain information from federally-assisted alcohol or drug abuse programs. If such information is present, then the following federally mandated warning applies: This information has been disclosed to you from records protected by federal confidentiality rules (42 CFR part 2). The federal rules prohibit you from making any further disclosure of this information unless further disclosure is expressly permitted by the written consent of the person to whom it pertains or as otherwise permitted by 42 CFR part 2. A general authorization for the release of medical or other information is NOT sufficient for this purpose. The Federal rules restrict any use of the information to criminally investigate or prosecute any alcohol or drug abuse patient.The records that you are about to access may contain highly sensitive health information, the redisclosure of which is protected by Article 27-F of the [facility] Public Health law. If you continue you may have access to information: Regarding HIV / AIDS; Provided by facilities licensed or operated by the [facility] Office of Mental Health; or Provided by the [facility] Office for People With Developmental Disabilities. If such information is present, then the following [facility] mandated warning applies: This information has been disclosed to you from confidential records which are protected by state law. State law prohibits you from making any further disclosure of this information without the specific written consent of the person to whom it pertains, or as otherwise permitted by law. Any unauthorized further disclosure in violation of state law may result in a fine or alf sentence or both. A general authorization for the release of medical or other information is NOT sufficient authorization for further disc losure. Allergies and Adverse Reactions Type Description Substance Reaction Status Data Source(s ) Clindamycin HCl Clindamycin HCl Clindamycin HCl Nausea/Vomiting Acti ve eCW1 ([facility]) Erythromycin Erythromycin Erythromycin 500 MG Delayed Rele ase Oral Tablet abdominal cramps, diarrhea Active eCW1 ([facility]) Family History Family Member Name Family Member Gender Family Member Status Date o f Status Description Data Source(s) Unknown Female Problem [facility] Unknown Female Problem MEDENT ([facility] Unknown Female Problem MEDENT ([facility] Unknown Female Problem MEDENT ([facility] Encounters Encounter Providers Location Date Indications Data Source(s ) [place] [address] [facility] [address] 07/14/2020 12:00:00 AM EST eCW1 ([facility]) Outpatient [address] [facility] [place] [address] 07/07/2020 12:00:00 AM EST eCW1 ([facility]) Unknown [address] [facility] [address] 06/09/2020 12:00:00 AM EST eCW1 ([facility]) Office Visit, Est Pt., Level 3 PC [address] [place] [address] 06/04/2020 12:00:00 AM EST eCW1 ([facility]) Unknown [address] [facility] [address] 05/09/2020 12:00:00 AM EST eCW1 ([facility]) Office Visit, Est Pt., Level 3 PC [address] [place] [address] 05/08/2020 12:00:00 AM EST eCW1 ([facility]) Emergency Attender: Roel Turk PAConsultant: Leighton Myles 04/29/2020 10:02:00 PM EST - 04/29/2020 11:50:00 PM [facility] [address] [place] [address] 11/05/2019 12:00:00 AM EDT eCW1 ([facility]) [facility] [address] [place] [address] 10/24/2019 12:00:00 AM EDT eCW1 ([facility]) Outpatient Attender: Leighton Myles [place] [facility] 08/08/2019 08:00:0 0 AM EST MEDENT ([facility] Outpatient Attender: Cindy QUINN [place] [facility] diallo 07/02/2019 08:00:00 AM EST MEDENT ([facility] Outpatient Attender: Cindy diallo 06/22/2019 09:20:00 AM EST MEDENT ([facility] Outpatient Attender: DONNA Santiago nder: Leighton MylesConsultant: Leighton Myles 06/17/2019 10:39:00 AM EST - 06/17/2019 10:39:00 AM EST [facility] Attender: DONNA QUINN [facility] 06/17/2019 09 :15:00 AM EST MEDENT ([facility]) Immunizations Vaccine Date Status Description Data Source(s) VARICELLA-ZOSTER VIRUS GLYCOPROTEIN E,REC/AS01B ADJUVA NT/PF 03/17/2020 12:00:00 AM EDT completed [facility] VARICELLA-ZOSTER VIRUS GLYCOPROTEIN E,REC/AS01B ADJUVA NT/PF 12/18/2019 12:00:00 AM EDT completed [facility] Medications Medication Brand Name Start Date Product Form Dose Route Admi nistrative Instructions Pharmacy Instructions Status Indications Reaction Description Data Source(s) 100 mcg 06/08/2020 12:00:00 AM EST tablet 30 TAKE ONE TABLET BY MOUTH EVERY DAY TAKE ONE TABLET BY MOUTH EVERY DAY SOLD: 07/09/2020 [facility] 100 mcg 06/08/2020 12:00:00 AM EST tablet 30 TAKE ONE TABLET BY MOUTH EVERY DAY TAKE ONE TABLET BY MOUTH EVERY DAY SOLD: 06/09/2020 [facility] 125 mcg 05/31/2020 12:00:00 AM EST tablet 7 TAKE ONE TABLET BY MOUTH EVERY DAY TAKE ONE TABLET BY MOUTH EVERY DAY SOLD: 06/01/2020 [facility] 125 mcg 05/01/2020 12:00:00 AM EST tablet 30 TAKE ONE TABLET BY MOUTH EVERY DAY TAKE ONE TABLET BY MOUTH EVERY DAY SOLD: 05/02/2020 [facility] 240 mcg/0.7 mL 04/15/2020 12:00:00 AM EDT syringe 0 INJECT BY [facility] INJECT BY [facility] SOLD: 04/15/2020 [facility] 1,000 mcg/mL 01/13/2020 12:00:00 AM EDT solution 1 INJECT 1ML INTRAMUSCULARLY EVERY MONTH INJECT 1ML INTRAMUSCULARLY EVERY MONTH SOLD: 05/25/2020 [facility] 100 mcg 01/13/2020 12:00:00 AM EDT tablet 30 TAKE ONE TABLET BY MOUTH EVERY DAY, MAXIMUM DAILY DOSE = 1 TAKE ONE TABLET BY MOUTH EVERY DAY, MAXI MUM DAILY DOSE = 1 SOLD: 01/17/2020 [facility] 100 mcg 01/13/2020 12:00:00 AM EDT tablet 30 TAKE ONE TABLET BY MOUTH EVERY DAY, MAXIMUM DAILY DOSE = 1 TAKE ONE TABLET BY MOUTH EVERY DAY, MAXI MUM DAILY DOSE = 1 SOLD: 03/30/2020 [facility] 1,000 mcg/mL 01/13/2020 12:00:00 AM EDT solution 1 INJECT 1ML INTRAMUSCULARLY EVERY MONTH INJECT 1ML INTRAMUSCULARLY EVERY MONTH SOLD: 01/17/2020 [facility] 1,000 mcg/mL 01/13/2020 12:00:00 AM EDT solution 1 INJECT 1ML INTRAMUSCULARLY EVERY MONTH INJECT 1ML INTRAMUSCULARLY EVERY MONTH SOLD: 07/25/2020 [facility] 1,000 mcg/mL 01/13/2020 12:00:00 AM EDT solution 1 INJECT 1ML INTRAMUSCULARLY EVERY MONTH INJECT 1ML INTRAMUSCULARLY EVERY MONTH SOLD: 04/30/2020 [facility] 1,000 mcg/mL 01/13/2020 12:00:00 AM EDT solution 1 INJECT 1ML INTRAMUSCULARLY EVERY MONTH INJECT 1ML INTRAMUSCULARLY EVERY MONTH SOLD: 06/24/2020 [facility] 100 mcg 01/13/2020 12:00:00 AM EDT tablet 30 TAKE ONE TABLET BY MOUTH EVERY DAY, MAXIMUM DAILY DOSE = 1 TAKE ONE TABLET BY MOUTH EVERY DAY, MAXI MUM DAILY DOSE = 1 SOLD: 02/19/2020 [facility] 1,000 mcg/mL 01/13/2020 12:00:00 AM EDT solution 1 INJECT 1ML INTRAMUSCULARLY EVERY MONTH INJECT 1ML INTRAMUSCULARLY EVERY MONTH SOLD: 02/19/2020 [facility] 1,000 mcg/mL 01/13/2020 12:00:00 AM EDT solution 1 INJECT 1ML INTRAMUSCULARLY EVERY MONTH INJECT 1ML INTRAMUSCULARLY EVERY MONTH SOLD: 03/30/2020 [facility] 0.01 % (0.1 mg/gram) 01/04/2020 12:00:00 AM EDT cream 42 INSERT 1/2 GRAM VAGINALLY 2 TIMES PER WEEK INSERT 1/2 GRAM VAGINALLY 2 TIMES PER WEEK SOLD: 05/25/2020 [facility] 0.01 % (0.1 mg/gram) 01/04/2020 12:00:00 AM EDT cream 42 INSERT 1/2 GRAM VAGINALLY 2 TIMES PER WEEK INSERT 1/2 GRAM VAGINALLY 2 TIMES PER WEEK SOLD: 01/06/2020 [facility] Injection (SC)/(Im) 10/29/2019 12:00:00 AM EDT completed MEDENT ([facility] Medication administered onsite Estradiol 0.1 MG/ML Vaginal Cream Estradiol 0.1 MG/GM Estrad iol 0.1 MG/GM 10/24/2019 12:00:00 AM EDT active Estradiol 0.1 MG/GM eCW1 ([facility]) Estradiol 0.1 MG/ML Vaginal Cream Estradiol 0.1 MG/GM Estrad iol 0.1 MG/GM 10/24/2019 12:00:00 AM EDT active Estradiol 0.1 MG/GM eCW1 ([facility]) Estradiol 0.1 MG/ML Vaginal Cream Estradiol 0.1 MG/GM Estrad iol 0.1 MG/GM 10/24/2019 12:00:00 AM EDT active Estradiol 0.1 MG/GM eCW1 ([facility]) Estradiol 0.1 MG/ML Vaginal Cream Estradiol 0.1 MG/GM Estrad iol 0.1 MG/GM 10/24/2019 12:00:00 AM EDT active 1/2 gm eCW1 ([facility]) Estradiol 0.1 MG/ML Vaginal Cream Estradiol 0.1 MG/GM Estrad iol 0.1 MG/GM 10/24/2019 12:00:00 AM EDT suspended Estradiol 0.1 MG/GM eCW1 ([facility]) Estradiol 0.1 MG/ML Vaginal Cream Estradiol 0.1 MG/GM Estrad iol 0.1 MG/GM 10/24/2019 12:00:00 AM EDT suspended Estradiol 0.1 MG/GM eCW1 ([facility]) Estradiol 0.1 MG/ML Vaginal Cream Estradiol 0.1 MG/GM Estrad iol 0.1 MG/GM 10/24/2019 12:00:00 AM EDT active Estradiol 0.1 MG/GM eCW1 ([facility]) Injection (SC)/(Im) 09/27/2019 12:00:00 AM EDT completed MEDENT ([facility] Medication administered onsite Injection (SC)/(Im) 08/27/2019 12:00:00 AM EST completed MEDENT ([facility] Medication administered onsite Injection (SC)/(Im) 07/23/2019 12:00:00 AM EST completed MED[facility] ([facility] Medication administered onsite Erythromycin 0.005 MG/MG Ophthalmic Ointment Erythromycin 06/22/2019 12:00:00 AM EST completed [facility] Injection (SC)/(Im) 06/21/2019 12:00:00 AM EST completed MEDENT ([facility] Medication administered onsite Levothyroxine Sodium 0.1 MG Oral Tablet Levothyroxine Sodium 06/17/2019 12:00:00 AM EST ORAL active MEDENT ([facility]) Vitamin B 12 1 MG/ML Injectable Solution Vitamin Defic iency Injectable System-B12 06/17/2019 12:00:00 AM EST active MEDENT ([facility]) Polymyxin B 15572 UNT/ML / Trimethoprim 1 MG/ML Ophtha lmic Solution [Polytrim] Polytrim 06/17/2019 12:00:00 AM EST active MEDENT ([facility]) Insurance Providers Payer name Policy type / Coverage type Policy ID Covered alliance party ID Covered alliance party's relationship to rousseau Policy Rousseau Plan Information [place] P[place] 302/307 [id number] SP [id number] MEDICARE [id number] SP [id number] EXCELL BC-BS PPO [id number] SP [id number] BLUE CROSS BLUE SHIELD -O/P [id number] 18 [id number] MEDICARE PART A -O/P [id number] 18 [id number] MEDICARE [id number] SP [id number] [place] PPO 302/307 [id number] SP [id number] [facility] MEDICARE PART [place] [id number] 18 [id number] [facility] INSURANCE -O/P [id number] Medicare Medicare Primary [id number] Self [id number] [employer] HP Commercial [id number] Self [id number] ANSI-Commercial [id number] ANSI-Medicare Part B [id number] [employer] [place] [id number] [address] [id number] Medicare Medicare Primary [id number] Self [id number] Medicare Medicare Primary [id number] Self [id number] Medicare Medicare Primary [id number] Self [id number] ANSI-Commercial [id number] [employer] [place] [id number] SP [id number] [facility] Ins Commercial [id number] Self [id number] [employer] DIST [id number] SP [id number] [employer] HP Commercial Self [employer] INSURANCE-O/P UNAVAILABLE UNAVAILABLE [employer] S[employer]OL O [id number] S [id number] [employer] DIST [id number] SP [id number] [employer] DIST [id number] SP [id number] [employer] DIST [id number] SP [id number] Problems, Conditions, and Diagnoses Code Display Name Description Problem Type Effective Dates Data Source(s) R93.89 [id number] Endometrial thickening on ultrasound Prob benjie 06/04/2020 12:00:00 AM EST eCW1 ([facility]) N95.0 [id number] Post-menopause bleeding Problem 05/08/2020 1 2:00:00 AM EST eCW1 ([facility]) 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 Diagnosis 04/29/2020 10:02:00 PM [facility] R55 Syncope and collapse Syncope and collapse Diagnosis 04/29/2020 10:02:00 PM [facility] [id number] Hordeolum internum left lower eyelid Hor deolum internum left lower eyelid Diagnosis 06/17/2019 10:39:00 AM [facility] H109 Unspecified conjunctivitis Unspecified conjunctivitis Diagnosis 06/17/2019 10:39:00 AM [facility] Surgeries/Procedures Procedure Description Date Indications Data Source(s) Injection (SC)/(Im) 10/29/2019 12:00:00 AM EDT MEDENT ([facility] Office Visit, Est Pt., Level 2 FC 10/24/2019 12:00:00 AM EDT eCW1 ([facility]) Office Visit, Est Pt., Level 3 PC 10/24/2019 12:00:00 AM EDT eCW1 ([facility]) Injection (SC)/(Im) 09/27/2019 12:00:00 AM EDT MEDENT ([facility] Injection (SC)/(Im) 08/27/2019 12:00:00 AM EST MEDENT ([facility] Injection (SC)/(Im) 07/23/2019 12:00:00 AM EST MEDENT ([facility] Injection (SC)/(Im) 06/21/2019 12:00:00 AM EST MEDENT ([facility] Results ID Date Data Source [id number] 07/27/2020 10:45:00 AM EST [facility] Name Value Range Interpretation Code Description Data Karla rce(s) Supporting Document(s) SARS coronavirus 2 RNA Not Detected [facility] This lab was ordered by [facility] and reported by [facility]. ID Date Data Source [facility] Pelvis non-OB COMPLETE US 05/12/2020 12:00:00 AM EST eC W1 ([facility]) Name Value Range Interpretation Code Description Data Karla rce(s) Supporting Document(s) [facility] Pelvis non-OB COMPLETE US eCW1 ([facility]) ID Date Data Source [id number] 05/01/2020 11:59:00 AM EST [facility] [address] [place] [address] PHONE: [phone] FAX: [phone] Name .................. : CAITLIN GRAFF Acct Number.................. : [id number] ROOM. ................. : -03 Number ................... : [id number] Stay type ............. : E/R Discharge Date......... ... : 04/29/20 Admit Date ......... : 04/29/20 Admit Phys .................... : DEANDRA Date of ....... : 1950 Family Phys ................... : KENYETTA GARCIA Phone .................. : [phone] Age ................................ : 69 Film# .................. .:[id number] Sex ................................. : F Unsigned transcriptions are preliminary reports and do not represent a medical or legal document CHEST 2 VIEWS [id number] COMPLETE:04/29/20 23:07 DLA 87918 Reason(s): syncope CHEST X-RAY: PA AND LATERAL VIEWS HISTORY: Syncope. COMPARISON: None. FINDINGS: The cardiomediastinal silhouette is normal. The pulmonary vasculature is normal. Clear lungs. No pleural effusion. No acute or focal osseous abnormality. IMPRESSION: No active disease is seen in the chest. Electronically Reviewed and Signed By Santana Garner MD , 05/01/20 11:59, APM Transcribe Initials: ROSAS , Transcribe Date: 04/30/20 00:44, Dictation Date: Copy for: FAYEPA RASHIDDE via fax Copy for: KENYETTA REHMAN via fax Copy for: EMERGENCY DEPT via modem Copy for: 710 MED REC DISCHARGED Page 1 of 1 Name Value Range Interpretation Code Description Data Karla rce(s) Supporting Document(s) ID Date Data Source [id number] 05/01/2020 11:58:00 AM EST [facility] [address] [place] [address] PHONE: [phone] FAX: [phone] Name .................. : CAITLIN GRAFF Acct Number.................. : [id number] ROOM. ................. : [facility]03 MR Number ................... : [id number] Stay type ............. : E/R Discharge Date......... ... : 04/29/20 Admit Date ......... : 04/29/20 Admit Phys .................... : DEANDRA Date of ....... : 1950 Family Phys ................... : KENYETTA COREYEL Phone .................. : [phone] Age ................................ : 69 Film# .................. .:[id number] Sex ................................. : F Unsigned transcriptions are preliminary reports and do not represent a medical or legal document CT HEAD W/O CONTRAST [id number] COMPLETE:04/29/20 23:08 DLA 32649 Reason(s): Syncope CT OF THE HEAD WITHOUT CONTRAST: HISTORY: Syncope. COMPARISON: None. FINDINGS: No acute intracranial hemorrhage, midline shift, mass effect or abnormal extra-axial fluid. Mild global volume loss and chronic small vessel ischemic disease are within expected limits for patient's age. Patent basal cisterns. No hydrocephalus. Well-aerated paranasal sinuses and mastoid air cells. IMPRESSION: No acute intracranial abnormality. While performing the above CT examination, radiation dose reduction was accomplished utilizing automated exposure control, adjusting of the mA and kV based on the patient's body size and/or the use of imperative reconstructive techniques. CT dose: 855.1 mGycm Electronically Reviewed and Signed By Santana Garner MD , 05/01/20 11:58, APM Transcribe Initials: DZ , Transcribe Date: 04/30/20 00:42, Dictation Date: Copy for: DEANDRA MARTINEZ via fax Copy for: KENYETTA REHMAN via fax Copy for: EMERGENCY DEPT via [facility] [address] [place] [address] PHONE: [phone] FAX: [phone] Name .................. : CAITLIN GRAFF Acct Number.................. : [id number] ROOM. ................. : TR-03 MR Number ................... : [id number] Stay type ............. : E/R Discharge Date......... ... : 04/29/20 Admit Date ......... : 04/29/20 Admit Phys .................... : PRISCILALONG Date of ....... : 1950 Family Phys ................... : KENYETTA GARCIA Phone .................. : [phone] Age ................................ : 69 Film# .................. .:[id number] Sex ................................. : F Unsigned transcriptions are preliminary reports and do not represent a medical or legal document CT HEAD W/O CONTRAST [id number] COMPLETE:04/29/20 23:08 DLA 02500 Reason(s): Syncope Copy for: 710 MED REC DISCHARGED Page 2 of 2 Name Value Range Interpretation Code Description Data Karla rce(s) Supporting Document(s) ID Date Data Source [id number] 04/29/2020 10:02:00 PM EST [facility] 1 [facility] [address] [place] [address] Phone #: ext- [phone] 04/29/2020 21:59 Patient: PRERNA TUCKER Sex: F : 1950 Age: 69yWEIGHT:56.6 kg (M) HEIGHT:61 inches (S) BMI:23.6ALLERGIES: Clindamycin, Erythromycin, Penicillins, Sulfa AntibioticsCHIEF COMPLAINT: syncope, [id number]: Hypothyroidism, SyncopeLAB ORDERSOrder Description Priority Entered Acknowledged InitialedCBC w Diff STAT 22:26 04/29/2020 22:37 Lulu Coronado R.N. PA;CMP STAT 22:04/29/2020 22:37 Lulu Cruz.N. PA;Lactic Acid STAT 22:04/29/2020 22:37 Lulu Coronado R.N. PA;Lipase STAT 22:04/29/2020 22:37 Lulu Coronado R.N. PA;PT/PTT STAT 22:04/29/2020 22:37 Lulu Coronado R.N. PA;Troponin-T STAT 22:04/29/2020 22:37 Lulu Coronado R.N. PA;TSH STAT :04/29/2020 22:37 Lulu Coronado R.N. PA;Urinalysis (Clean STAT :04/29/2020 Ack'd: 22:37 Ullu 23:56 Leana, TheaCatch) Roel Coronado RMontezNMontez R.N. PA;DIAGNOSTIC STUDY ORDERSOrder Description Priority Entered Acknowledged InitialedG[facility] Hospitalt 2 View STAT :04/29/2020 Ack'd: 22:37 Lulu 23:56 Leana Katie(Oxygen?(No)) Roel MiNMontez R.N. PA; Reason for Study: syncope 2 OrderSheet [facility] Emergency Department [address] [place] [address] Phone #: ext- [phone] 04/29/2020 21:59 Patient: PRERNA TUCKER Sex: F : 1950 Age: 69yCT Head W/O Cont STAT 22:04/29/2020 Ack'd: 22:37 Lulu 23:56 Dueñas, Katie(Oxygen?(No)) Roel Coronado R.N., R.N. PA; Reason for Study: SyncopeMEDICATION/IV/DRIP/FLUID ORDERSOrder Description Priority Entered Acknowledged InitialedGENERAL ORDERSOrder Description Priority Entered Acknowledged InitialedBlood Pressure 22:04/29/2020 22:37 Lulu BlairMonitor Roel Coronado R.N. PA;Hollow Ware Maker 22:04/29 22:37 Lulu Melara(continuous) Roel Coronado R.N. PA;EKG 22:04/29/2020 22:37 Lulu Kelton Coronado RMontezNMontez PA;Pulse oximeter :04/29/2020 22:37 Lulu Melara(Continuous) Roel Coronado R.N. PA;Vitals 22:04/29/2020 22:37 Lulu QUINN;[Electronically signed by Katie Dueñas R.N. (23:56 04/29/2020)][Electronically signed by Roel Turk (06:22 04/30/2020)][Electronically locked by Katie Dueñas R.N. (23:56 04/29/2020)] Name Value Range Interpretation Code Description Data Karla rce(s) Supporting Document(s) ID Date Data Source [id number] 04/29/2020 10:02:00 PM EST [facility] 1 Medication Reconciliation Report [facility] [address] [place] [address] Phone #: ext- [phone] 04/29/2020 21:59 Patient: PRERNA TUCKER Sex: F : 1950 Age: 69yWeight: 56.6 kgHeight/Length: 61 in.BMI: 23.6ALLERGIES: Clindamycin, Erythromycin, Penicillins, Sulfa AntibioticsThe patient's Home Medications are listed below:CONTINUE TAKING THE FOLLOWING MEDICATIONS: B-12 Sublingual, monthly Estradiol Transdermal, a few times a week Levothyroxine Sodium Oral 100 mcg, dailyThe source(s) of the original Home Medication information:patientThe following Medications were given to the patient in the Emergency Department:None.The following Medications were prescribed to the patient:None. Name Value Range Interpretation Code Description Data [facility]) Supporting Document(s) ID Date Data Source [id number] 04/29/2020 10:02:00 PM [place] [address] Medication Administration Record [facility] Department [address] [place] [address] Phone #: ext- [phone] 04/29/2020 21:59 Patient: PRERNA TUCKER Sex: F : 1950 Age: 69yWeight: 56.6 kgHeight/Length: 61 inBMI: 23.6ALLERGIES: Clindamycin, Erythromycin, Penicillins, Sulfa AntibioticsDate/Time Medication Administered Medication Ordered Name Value Range Interpretation Code Description Data [facility](s) Supporting Document(s) ID Date Data Source [id number] 04/29/2020 10:02:00 PM [facility] 1 General Instructions [facility] [address] [place] [address] Phone #: ext- [phone] 04/29/2020 21:59 Patient: PRERNA TUCKER Sex: F : 1950 Age: 69yVasovagal syncope.Congenital hypothyroidism without goiter.INSTRUCTIONSWarnings: GENERAL WARNINGS: Return or contact your physician immediately if your conditionworsens or changes unexpectedly, if not improving as expected, or if other problems arise.SPECIFICALLY, return if you develop c hest pain, fluttering sensation in your chest, lightheadedness orfainting.Your Current Medications: Your current home medications have been reviewed.CONTINUE TAKING THE FOLLOWING MEDICATIONS:B-12 Sublingual : monthly.Estradiol Transdermal : a few times a week.Levothyroxine Sodium Oral : 100 mcg daily.Follow-up:Follow up with your doctor tomorrow. Call for the next available appointment. Reason for referral:evaluation, treatment and TSH is elevated. Summary of care provided to patient.Understanding of the discharge instructions verbalized by patient. ADDITIONAL INFORMATIONFainting: Vagal ReactionFainting (syncope) is a temporary loss of consciousness that is associated with a loss of posturaltone. It's also called passing out. It occurs when blood flow to the brain is less than normal. Yourhealthcare provider believes that your fainting was because of a vagal reaction. This condition is not asign of serious disease.A vagal reaction is a response in your body that causes your pulse to slow down or the blood vesselsto expand. This causes your blood pressure to fall. And this sends less blood to your brain if you arestanding or sitting. That results in dizziness, near-fainting, or fainting. Lying down usually stops thereaction within 60 seconds.This response can occur during sudden fear, severe pain, emotional stress, overexertion, 2 General Instructions [facility] [address] [place] [address] Phone #: ext- [phone] 04/29/2020 21:59 [id number] Sex[facility] : 1950 Age: 69yoverheating, hunger, nausea or vomiting, prolonged standing, or standing up after sitting or lying for along time.Home careFollow these guidelines when caring for yourself at home: Rest today. Go back to your normal activities as soon as you are feeling back to normal. Stay hydrated and avoid skipping meals. If you feel lightheaded or dizzy, lie down right away. Or sit with your head lowered between your knees.Follow-up careFollow up with your healthcare provider, or as advised.Call [phone] 911 if any of the following occur: Another fainting spell that's not explained by the common causes listed above Pain in your chest, arm, neck, jaw, back, or abdomen Shortness of breath Severe headache or seizure Your heart beats very rapidly, very slowly, or irregularly (palpitations) [id number] [employer]. [address] [place] [address], [place] [address]. All rights reserved. This information is not intended as asubstitute for professional medical care. Always follow your healthcare professional's instructions.Hypothyroidism 3 General Instructions [facility] [address] [place] [address] Phone #: ext- [phone] 04/29/2020 21:59 [id number] Sex: F : 1950 Age: 69yYou have hypothyroidism. This means your thyroid gland is not making enough thyroid hormone. Thishormone is vital to body growth and metabolism. If you don't make enough, many body processesslow down. This can cause symptoms throughout the body. Hypothyroidism can range from mild tosevere. The most severe form is called myxedema.There are a number of causes of hypothyroidism. A common cause is Dom's disease. Thisdisease causes the body's own immune system to attack the thyroid gland. When you have certaintreatments, such as surgery to remove the thyroid gland, this can also cause hypothyroidism.Sometimes the thyroid gland is not functioning because of lack of stimulation from the pituitary gland.Symptoms of hypothyroidism can include: Fatigue Trouble concentrating or thinking clearly; forgetfulness Dry skin Hair loss Weight gain Low tolerance to cold Constipation Depression Personality changes Tingling or prickling of the hands or feet 4 General Instructions [facility] Department [address] [place] [address] Phone #: ext- [phone] 04/29/2020 21:59 Patient: PRERNA TUCKER A cct#: [id number] Sex: F : 1950 Age: 69y Heavy, absent, or irregular periods (women only)Older adults may sometimes have other symptoms. These can include: Muscle aches and weakness Confusion Incontinence (unable to control urine or stool) Trouble moving around FallingTreatment for hypothyroidism involves taking thyroid hormone pills daily. These pills replace thehormone your thyroid doesn't make. You will likely need to take a daily pill for the rest of your life.Tips for taking this medicine are given below.Home careTips for taking your medicine Take your thyroid hormone pills as prescribed by your healthcare provider. This is most often 1 pill a day on an empty stomach. Use a pillbox labeled with the days of the week. This will help you remember to take your pill each day. Don't take products that contain iron and calcium or antacids within 4 hours of taking your thyroid hormone pills. Don't take other medicines with your thyroid hormone pill without checking with your provider first. Tell your provider if you have any side effects from your medicines that bother you, especially any chest pain or irregular heartbeats. Never change the dosage or stop taking your thyroid pills without talking to your provider first.General care Always talk with your provider before trying other medicines or treatments for your thyroid problem. If you see other healthcare providers, be sure to let them know about your thyroid problem. Let your healthcare provider know if you become because your dose of thyroid hormone will need to be adjusted. 5 General Instructions [facility] Department [address] [place] [address] Phone #: ext- [phone] 04/29/2020 21:59 Patient: PRERNA TUCKER Sex: F : 1950 Age: 69yFollow-up careSee your healthcare provider for checkups as advised. You may need regular tests to check the levelof thyroid hormone in your blood.When to seek medical adviceCall your healthcare provider right away if any of these occur: New symptoms develop Symptoms return, continue, or worsen even after treatment Extreme fatigue Puffy hands, face, or feet Fast or irregular heartbeat ConfusionCall 911Call 911 if any of these occur: Fainting Chest pain Shortness of breath or trouble breathing [phone] [employer]. [address] [place] [address]. All rights reserved. This information is not intended as asubstitute for professional medical care. Always follow your healthcare professional's instructions. You have been given the following additional information: Syncope, Vasovagal Hypothyroidism(Electronically signed by KAI Sheehan 04/30/2020 06:22) Name Value Range Interpretation Code Description Data Karla rce(s) Supporting Document(s) ID Date Data Source [id number] 04/29/2020 10:02:00 PM [facility] 1 Clinical Report - [facility] Department [address] [place] [address] Phone #: ext- [phone] 04/29/2020 21:59 Patient: PRERNA TUCKER Sex: F : 1950 Age: 69yTRIAGEArrived by EMS. Historian: EMS and patient. ( EMS responded to patient home - stated pt hadsyncopal-type episode, breathing but unresponsive sitting on couch at home 2119. Pt states previousepisodes, self- resolved. Presents AOx3, speech clear, appropriate).Alert. No acute distress.This occurred at 2119. This is a recurrent problem. Started while at rest. Symptoms gone now. Patientwas witnessed to be last known well.Treatment LATEX CASTER:None.EMS Treatment LATEX CASTER:Finger stick glucose performed (104). BP: 144 / 86. HR: 62. RR: 16. Temp: 97.7 oral. O2 saturation:97 room air. ( appropriate, stroke scale WNL per EMS when arrived to scene).SEPSIS SCREEN: SIRS Screen negative. Sepsis Screen negative. No suspected or confirmed signs ofinfection present. --22:14 04/29/20 Katie Dueñas R.N.22:05 04/29/20. BP: 133/89 (regular adult cuff) taken on the right arm, via an automated monitor, whilesitting. MAP: 103. HR: 64 (regular). RR: 16. O2 saturation: 100% on room air. Temp: 97.7 F. Pain levelnow: 0/10. --22:14 04/29/20 Katie Dueñas R.N.Acuity: LEVEL 3.Chief Complaint: SYNCOPE.22:05 04/29/20. --22:15 04/29/20 Katie Dueñas R.N.Weight: 56.6 kg measured. Height/Length: 61 inches Per Patient. BMI: 23.6. --22:05 04/29/20 Katie Dueñas R.N.MedicationsLevothyroxine Sodium Oral 100 mcg, daily. --22:09 1 06/29/19 Katie Dueñas R.N. B-12 Sublingual, monthly. --22:04/29/20 Katie Dueñas R.N. Estradiol Transdermal (a few times a week). --22:04/29/20 Katie Dueñas R.N.AllergiesSulfa Antibiotics. --22:10 04/29/20 Katie Dueñas R.N.Penicillins. --22:10 04/29/20 Katie Dueñas R.N.Erythromycin. --22:10 04/29/20 Katie Dueñas R.N.Clindamycin. --22:10 04/29/20 Katie Dueñas R.N. 2 Clinical Report - Nurses [facility] Department [address] [place] [address] Phone #: ext- [phone] 04/29/2020 21:59 [id number] Sex[facility] F : 1950 Age: 69y PROBLEMS: Hypothyroidism. --22:11 04/29/20 Katie Dueñas R.N. Medication/allergy information source: the patient. --22:14 04/29/20 Katie Dueñas R.N. ADDITIONAL SURGERIES: . Foot surgery. Gallbladder Surgery. Hernia Repair. --22:11 04/29/20 Katie Dueñas R.N. History PAST MEDICAL HX: Syncope. Immunizations: up-to -date. The patient is post-menopausal. SOCIAL HX: Never smoker. No alcohol use or drug use. She was offered HIV testing but declined and hepatitis C testing but declined. She has not traveled outside the [place] Infectious disease exposure: No infectious disease exposure. SELF HARM ASSESSMENT: Self harm assessment was performed. The patient answered "no" to the question(s) "Have you recently felt down, depressed, or hopeless?", "Do you have thoughts of harming or killing yourself?", "Do you have a plan for harming or killing yourself?", "Have you recently had thoughts about harming or killing others?", "Do you have any dangerous items in your possession?", "Have you noticed less interest or pleasure in doing things?", "Are you here because you tried to hurt yourself?" and "Have you ever tried to hurt yourself before today?". ABUSE ASSESSMENT: Abuse assessment. Abuse denied. No suspicion of abuse. No report of abuse. NUTRITIONAL RISK ASSESSMENT: The nutritional risk assessment revealed no deficiencies. FUNCTIONAL ASSESSMENT: Functional assessment: no impairments noted. LEARNING NEEDS ASSESSMENT: The learning needs assessment revealed no barriers. FALL RISK ASSESSMENT: Fall risk assessment completed. No risk factors identified. SKIN INTEGRITY ASSESSMENT: Skin integrity risk assessment completed. No skin integrity risk identified. --22:14 04/29/20 Katie Dueñas R.N.PHYSICAL CAEPINGXCY46:27 04/29/20. To room via stretcher. Patient gowned.GENERAL / NEURO / PSYCH: Oriented X 4. Appears in no acute distress. Alert. Speech within normallimits.HEENT: No facial asymmetry noted.RESPIRATORY: Breath sounds within normal limits. Respirations not labored. 3 Clinical Report - Nurses [facility] Emergency Department [address] [place] [address] Phone #: ext- [phone] 04/29/2020 21:59 Patient: PRERNA TUCKER Sex: F : 1950 Age: 69y CVS: Capillary refill less than 2 seconds. GI / : Abdomen soft and nontender. SKIN: Skin is warm and dry. --22:04/29/20 Shan Staples R.N.NURSING PROGRESS NOTES22:04/29/20. EKG time: (22:04/29/2020). EKG was performed by a nurse and shown to the EDphysician. Reassurance given. Call light placed in reach. Side rails up x 2. Bed placed in lowestposition. Brakes of bed on. Patient ready for evaluation. --22:15 04/29/20 Katie Dueñas R.N. 22:27 04/29/20. BP: 135/85. MAP: 101. HR: 66. RR: 16. O2 saturation: 100% on room air. Pain level now: 0/10. --22:27 04/29/20 Shan Staples R.N.DISPOSITION / DISCHARGE 23:50 04/29/20. BP: 130/77 (regular adult cuff) taken on the right arm, via an automated monitor, while sitting. MAP: 94. HR: 67 (normal rate). RR: 16 (unlabored). O2 saturation: 100% on room air. Temp: deferred. Pain level now: 0/10. --23:55 04/29/20 Katie Dueñas R.N. 22:00 04/29/2020 Site #1 started via IV in the right wrist with an 20g angiocath; one attempt. --23:55 04/29/20 Katie Dueñas R.N. 23:50 04/29/20. Condition at departure: stable. ( Pt encouraged to follow up with PCP for further eval, lab work and medication adjustment if needed. Verbalizes understanding. Remains NAD, speech clear, appropriate, no pain at this time.). No learning barriers present. Discharge instructions provided and reviewed with the patient. Patient verbalized understanding. Written instructions provided in Singaporean. The patient was discharged by the physician teachers' assistant. She was discharged home and accompanied by spouse. She left ambulatory and via private vehicle. Spouse driving. --23:55 04/29/20 Katie Dueñas R.N. 23:50 04/29/2020 Site #1 removed upon discharge. Manual pressure and bandage applied. --23:55 04/29/20 Katie Dueñas R.N.Locked/Released at 04/29/2020 23:56 by Katie Dueñas R.N. Name Value Range Interpretation Code Description Data Karla rce(s) Supporting Document(s) ID Date Data Source [id number] 04/29/2020 10:02:00 PM EST [facility] 1 Clinical Report - Physicians/Mid Levels [facility] Emergency Department [address] [place] [address] Phone #: ext- [phone] 04/29/2020 21:59 Patient: PRERNA TUCKER Sex: F : 1950 Age: 69y Time Seen: 22:20 04/29/2020. Arrived- By ambulance. Historian- patient and EMS personnel.HISTORY OF PRESENT ILLNESS Chief Complaint: SINGLE SYNCOPAL EPISODE. This occurred just prior to arrival. The patient has recovered. Patient was last known well (21:20 04/29/2020). It was abrupt in onset. Event was witnessed. The patient had no preceding symptoms. At time of event, she was sitting. No preceding symptoms of light-headedness, nausea, dim vision, chest pain or warmth. No preceding symptoms of abdominal pain. Did not feel faint, collapse or lose pulse. She lost consciousness. No seizure activity, incontinence or apnea noted. Had a single episode. The episode was brief and lasted seconds. No injuries noted. Currently she feels normal. (EMS responded to patient home - stated pt had syncopal-type episode, breathing but unresponsive sitting on couch at home 2119. Pt states previous episodes, self- resolved. Presents AOx3, speech clear, appropriate). Similar symptoms previously. Patient has had similar symptoms once. Recent medical care: Not recently seen/assessed.REVIEW OF SYSTEMSNo headache, dizziness, weakness, chest pain or palpitations. No abdominal pain, vomiting, diarrhea,black stools or numbness. No bloody stools, fever, sore throat, difficulty breathing or difficulty withurination. No skin rash, enlarged lymph nodes, cough or joint pain.PAST HISTORYProblems:Syncope.Hypothyroidism. Additional Surgeries: C- Section. Foot surgery. Gallbladder Surgery. Hernia Repair. Medications: Estradiol Transdermal (a few times a week). B-12 Sublingual, monthly. Levothyroxine Sodium Oral 100 mcg, daily. Allergies: 2 Clinical Report - Physicians/Mid Levels [facility] Emergency Department [address] [place] [address] Phone #: ext- [phone] 04/29/2020 21:59 Patient: PRERNA TUCKER Sex: F : 1950 Age: 69y Clindamycin. Erythromycin. Penicillins. Sulfa Antibiotics.SOCIAL HISTORYNever smoker. Occasional alcohol use. No drug use.PHYSICAL EXAMVital Signs: 04/29/2020 22:05 BP: sitting 133/89. MAP: 103. HR: 64. RR: 16. O2 saturation: 100% onroom air. Temp: 97.7 F. Pain level now: 0/10. Have been reviewed. Oxygen saturation normal.Appearance: Alert. No acute distress.Eyes: Pupils equal, round and reactive to light. No nystagmus.ENT: Normal ENT inspection. TM's normal. Moist mucous membranes. Pharynx normal.Neck: Normal inspection. Neck supple.CVS: Normal heart rate. Heart sounds normal.Respiratory: No respiratory distress. Painless inspiration. Breath sounds normal.Abdomen: Soft and nontender. No organomegaly.Back: Normal inspection.Skin: Skin warm and dry. Normal skin color. No rash. Normal skin turgor.Extremities: Extremities exhibit normal ROM. No lower extremity edema.Neuro: Alert. Oriented X 3. Mood/affect normal. Speech normal. Cranial nerves normal (as tested).No cerebellar findings. No motor deficit. No sensory deficit. Reflexes normal.LABS, X-RAYS, AND EKGChest X-ray: No acute disease. Views: PA and lateral. The X-rays were interpreted by the radiologistand contemporaneously by me. Interpretation time: 23:23 04/29/2020.CT Head: (NAD). Head CT performed without contrast. The study was interpreted by the radiologist andcontemporaneously by me. Interpretation time: 23:23 04/29/2020.Laboratory Tests: Laboratory tests have been ordered, with results reviewed and considered in themedical decision making process. CBC w Diff: (VJ: 04/29/2020 22:30) ( MsgRcvd 04/29/2020 22:46) Final results Test Result Flag Units (Reference) CBC W/AUTOMATED DIFF COMPLETE BLOOD COUNT WBC 9.2 10/uL (4.2 - 11.0) RBC 4.47 10/uL (4.20 - 5.40) HEMOGLOBIN 13.7 g/dL (12.0 - 16.0) HEMATOCRIT 40.4 % (37.0 - 47.0) MCV 90.4 fL (81.0 - 101) MCH 30.6 pg (27.0 - 34.0) MCHC 33.9 g/dL (31.0 - 36.0) RDW 12.5 % (11.5 - 14.5) PLATELETS 324 10/uL (150 - 450) MPV 9.5 fL (7.4 - 10.4) NEUT 49.6 % (37.0 - 80.0) LYMPH 39.7 % (25.0 - 40.0) 3 Clinical Report - Physicians/[facility] Emergency Department [address] [place] [address] Phone #: ext- [phone] 04/29/2020 21:59 Patient: PRERNA TUCKER Sex: F : 1950 Age: 69y MONO 6.0 % (3.0 - 8.0) EOS 3.8 % (0.0 - 7.0) BASO 0.8 % (0.0 - 2.5) %IG 0.1 H % (0.0 - 0.0) %NRBC 0.0 % (0.0 - 0.0) #NEUT 4.59 10/uL (2.00 - 6.90) #LYMPH 3.66 H 10/uL (0.60 - 3.40) #MONO 0.55 10/uL (0.00 - 0.90) #EOS 0.35 10/uL (0.00 - 0.70) #BASO 0.07 10/uL (0.00 - 0.20) #IG 0.01 10/uL (0.00 - 0.10) #NRBC 0.00 10/uL (0.00 - 0.00) MANUAL DIFF NOT INDICATED RBC MORPH NOT INDICATEDCMP: (VJ: 04/29/2020 22:30) ( MsgRcvd 04/29/2020 23:03) Final results Test Result Flag Units (Reference) COMPREHENSIVE METABOLIC PANEL COMPREHENSIVE METABOLIC PANEL SODIUM 135 mEq/L (134 - 153) POTASSIUM 3.7 mEq/L (3.6 - 5.0) CHLORIDE 97 L mEq/L (98 - 107) CO2 32 H MEQ/L (22 - 30) GLUCOSE 100 MG/DL (65 - 110) BUN 16 MG/DL (7 - 21) CREATININE 0.6 L MG/DL (0.7 - 1.5) BUN/CREAT 27 (8 - 27) TOTAL PROTEIN 7.1 G/DL (6.3 - 8.2) ALBUMIN 4.3 G/DL (3.9 - 5.0) GLOBULIN 2.8 GM/DL (2.4 - 3.2) A/G RATIO 1.5 (0.8 - 2.0) CALCIUM 9.6 MG/DL (8.4 - 10.2) TOTAL BILI 1.1 MG/DL (0.2 - 1.3) ALKALINE PHOS 76 U/L (38 - 126) SGOT/AST 19 U/L (5 - 40) SGPT/ALT 20 U/L (7 - 56) ANION GAP 6.0 L mmol/L (8.0 - 16.0) AGE 69 yrs NON-AA GFR >60 mL/min AFR AMER GFR >60 Male GFR Interprentation 20-49 yrs >60 mL/min [id number] yrs >56 mL/min Normal 60-69 yrs >49 mL/min Normal 70-79yrs>42 mL/min Normal 80 and above >35 mL/min Normal Female GFRInterpretation 20-39 yrs >60 mL/min Normal 40-49 yrs >58 mL/minNormal 50-59 yrs >51 mL/min Normal 60-69 yrs >45 mL/min [id number] yrs >39 mL/min Normal 80 and above >32 mL/min NormalLactic Acid: (VJ: 04/29/2020 22:30) ( MsgRcvd 04/29/2020 22:45) Final results Test Result Flag Units (Reference) LACTIC ACID 2.0 MMOL/L (0.2 - 2.2)Lipase: (VJ: 04/29/2020 22:30) ( MsgRcvd 04/29/2020 23:03) Final results Test Result Flag Units (Reference) LIPASE 34 U/L (13 - 60)PT/PTT: (VJ: 04/29/2020 22:30) ( MsgRcvd 04/29/2020 22:45) Final results 4 Clinical Report - Physicians/Mid Levels [facility] Emergency Department [address] [place] [address] Phone #: ext- [phone] 04/29/2020 21:59 Patient: PRERNA TUCKER Sex: F : 1950 Age: 69y Test Result Flag Units (Reference) PROTIME 13.1 SECONDS (11.0 - 15.5) INR 0.98 (0.93 - 1.23) PTT 29.6 SECONDS (24.8 - 36.7) \\BLDo\\INR INTERPRETATION\\BLDx\\ Therapeutic range for Coumadin and related oral anticoagulants. -International Normalized Ratio (INR): 2.0 - 3.0 for Venous Thrombosis, Pulmonary Embolus, Tissue heart valves, Acute CT Atrial Fibrillation, Valvular heart disease and recurrent Systemic Embolism. -International Normalized Ratio (INR): 2.5 - 3.5 for Mechanical Prosthetic valve. Troponin-T: (VJ: 04/29/2020 22:30) ( MsgRcvd 04/29/2020 23:03) Final results Test Result Flag Units (Reference) TROPONIN T <0.01 NG/ML (0.00 - 0.10) TROPONIN T0.1 ng/ml Recommended as the clinical threshold value forTroponin T. TSH: (VJ: 04/29/2020 22:30) ( [facility] Final results Test Result Flag Units (Reference) TSH 7.88 H uIU/mL (0.47 - 5.01) Chest 2 View: (VJ: 04/29/2020 22:26) ( MsgRcvd 04/29/2020 23:08) In Progress CHEST 2 VIEWS Reason(s): syncope TRANSPORTATION: WC IV? O2? Oxygen?(No) Room: ED CT Head W/O Cont: (VJ: 04/29/2020 22:26) ( MsgRcvd 04/29/2020 23:08) In Progress CT HEAD W/O CONTRAST Reason(s): Syncope TRANSPORTATION: WC IV? O2? Oxygen?(No) Room: ED.PROGRESS AND PROCEDURESCourse of Care: 23:24 Apr 29 2020. Evaluation after observation. (Discussed labs, CXR, Head CT andpt is agreeable with dx and t x plan. She will follow up with PCP to adjust Levothyroxine/). Patient counseled in person regarding the patient's stable condition, test results, diagnosis and need for follow-up. Patient agrees with plan of care. 23:24 Apr 29 2020. Disposition: Discharged home in good and improved condition (23:25 Apr 29 2020).CLINICAL IMPRESSION Vasovagal syncope. Congenital hypothyroidism without goiter. 5 Clinical Report - Physicians/Mid Levels [facility] Emergency Department [address] [place] [address] Phone #: ext- [phone] 04/29/2020 21:59 Patient: PRERNA TUCKER Sex: F : 1950 Age: 69yINSTRUCTIONS Warnings: GENERAL WARNINGS: Return or contact your physician immediately if your condition worsens or changes unexpectedly, if not improving as expected, or if other problems arise. SPECIFICALLY, return if you develop chest pain, fluttering sensation in your chest, lightheadedness or fainting. Your Current Medications: Your current home medications have been reviewed. CONTINUE TAKING THE FOLLOWING MEDICATIONS: B-12 Sublingual : monthly. Estradiol Transdermal : a few times a week. Levothyroxine Sodium Oral : 100 mcg daily. Follow-up: Follow up with your doctor tomorrow. Call for the next available appointment. Reason for referral: evaluation, treatment and TSH is elevated. Summary of care provided to patient. Understanding of the discharge instructions verbalized by patient.(Electronically signed by KAI Sheehan 04/30/2020 06:22) Name Value Range Interpretation Code Description Data Karla rce(s) Supporting Document(s) ID Date Data Source [id number] 04/29/2020 11:16:00 PM [facility] Name Value Range Interpretation Code Description Data Karla rce(s) Supporting Document(s) Thyrotropin [Units/volume] in Serum or Plasma by Detec tion limit <= 0.05 mIU/L 7.88 uIU/mL 0.47 - 5.01 H [facility] ID Date Data Source [id number] 04/29/2020 11:03:00 PM [facility] Name Value Range Interpretation Code Description Data [facility] rce(s) Supporting Document(s) TROPONIN T <0.01 NG/ML 0.00 - 0.10 [facility] ospital TROPONIN T0.1 ng/ml Recommended as the c linical threshold value forTroponin T. ID Date Data Source [id number] 04/29/2020 11:02:00 PM [facility] Name Value Range Interpretation Code Description Data Karla rce(s) Supporting Document(s) Lipase [Enzymatic activity/volume] in Serum or Plasma 34 U/L 13 - 60 [facility] ID Date Data Source [id number] 04/29/2020 11:02:00 PM [facility] Name Value Range Interpretation Code Description Data Karla rce(s) Supporting Document(s) COMPREHENSIVE METABOLIC PANEL [facility] COMPREHENSIVE METABOLIC PANEL Sodium [Moles/volume] in Serum or Plasma 135 mEq/L 134 - 153 [facility] Potassium [Moles/volume] in Serum or Plasma 3.7 mEq/L 3.6 - 5.0 [facility] Chloride [Moles/volume] in Serum or Plasma 97 mEq/L 98 - 107 L [facility] Carbon dioxide, total [Moles/volume] in Serum or Plasma 32 MEQ/L 22 - 30 H [facility] Glucose [Mass/volume] in Serum or Plasma 100 MG/DL 65 - 110 [facility] BUN 16 MG/DL 7 - 21 [facility] Creatinine [Mass/volume] in Serum or Plasma 0.6 MG/DL 0.7 - 1.5 L [facility] BUN/CREAT 27 8 - 27 [facility] Protein [Mass/volume] in Serum or Plasma 7.1 G/DL 6.3 - 8.2 [facility] Albumin [Mass/volume] in Serum or Plasma 4.3 G/DL 3.9 - 5.0 [facility] Globulin [Mass/volume] in Serum by calculation 2.8 GM/DL 2.4 - 3.2 [facility] A/G RATIO 1.5 0.8 - 2.0 [facility] Calcium [Mass/volume] in Serum or Plasma 9.6 MG/DL 8.4 - 10.2 [facility] Bilirubin.total [Mass/volume] in Serum or Plasma 1.1 MG/DL 0.2 - 1.3 [facility] Alkaline phosphatase [Enzymatic activity/volume] in Serum or Plasma 76 U/L 38 - 126 [facility] Aspartate aminotransferase [Enzymatic activity/volume] in Serum or Plasma 19 U/L 5 - 40 [facility] Alanine aminotransferase [Enzymatic activity/volume] in Seru m or Plasma 20 U/L 7 - 56 [facility] Anion gap 3 in Serum or Plasma 6.0 mmol/L 8.0 - 16.0 L [facility]GE 69 y[facility] NON-AA GFR >60 mL/min [facility] ital AFR AMER GFR >60 [facility] Male GFR In terprentation 20-49 yrs >60 mL/min Normal 50-59 yrs >56 mL/min Normal 60-69 yrs >49 mL/min Normal 70-79yrs >42 mL/min Normal 80 and above >35 mL/min Normal Female GFR Interpretation 20-39 yrs >60 mL/min Normal 40-49 yrs >58 mL/min Normal 50-59 yrs >51 mL/min Normal 60-69 yrs >45 mL/min Normal 70-79 yrs >39 mL/min Normal 80 and above >32 mL/min Normal ID Date Data Source [id number] 04/29/2020 10:45:00 PM EST [facility] Name Value Range Interpretation Code Description Data Karla rce(s) Supporting Document(s) CBC W/AUTOMATED DIFF [facility] COMPLETE BLOOD COUNT Leukocytes [#/volume] in Blood by Automated count 9.2 10^3/uL 4.2 - 1 1.0 [facility] Erythrocytes [#/volume] in Blood by Automated count 4.47 10^6/uL 4. 20 - 5.40 [facility] Hemoglobin [Mass/volume] in Blood 13.7 g/dL 12.0 - 16.0 [facility] Hematocrit [Volume Fraction] of Blood by Automated count 40.4 % 3 7.0 - 47.0 [facility] Erythrocyte mean corpuscular volume [Entitic volume] by Auto mated count 90.4 fL 81.0 - 101 [facility] Erythrocyte mean corpuscular hemoglobin [Entitic mass] by Automated count 30.6 pg 27.0 - 34.0 [facility] Erythrocyte mean corpuscular hemoglobin concentration [Mass/volume] by Automated count 33.9 g/dL 31.0 - 36.0 [facility] Erythrocyte distribution width [Ratio] by Automated count 12.5 % 11.5 - 14.5 [facility] Platelets [#/volume] in Blood by Automated count 324 10^3/uL 150 - 45 0 [facility] Platelet mean volume [Entitic volume] in Blood by Automated count 9.5 fL 7.4 - 10.4 [facility] Neutrophils/100 leukocytes in Blood by Automated count 49.6 % 37. 0 - 80.0 [facility] Lymphocytes/100 leukocytes in Blood by Manual count 39.7 % 25.0 - 40.0 [facility] Monocytes/100 leukocytes in Blood by Automated count 6.0 % 3.0 - 8.0 [facility] Eosinophils/100 leukocytes in Blood by Automated count 3.8 % 0.0 - 7.0 [facility] Basophils/100 leukocytes in Blood by Automated count 0.8 % 0.0 - 2.5 [facility] %IG 0.1 % 0.0 - 0.0 [facility] 0.0 % 0.0 - 0.0 [facility] Neutrophils [#/volume] in Blood by Automated count 4.59 10^3/uL 2.00 - 6.90 [facility] Lymphocytes [#/volume] in Blood by Automated count 3.66 10^3/uL 0.60 - 3.40 H [facility] Monocytes [#/volume] in Blood by Automated count 0.55 10^3/uL 0.00 - 0.90 [facility] Eosinophils [#/volume] in Blood by Automated count 0.35 10^3/uL 0.00 - 0.70 [facility] Basophils [#/volume] in Blood by Automated count 0.07 10^3/uL 0.00 - 0.20 [facility] #IG 0.01 10^3/uL 0.00 - 0.10 [facility] ospital #NRBC 0.00 10^3/uL 0.00 - 0.00 [facility] MANUAL DIFF NOT INDICATED [facility] RBC MORPH NOT INDICATED [facility] spital ID Date Data Source [id number] 04/29/2020 10:45:00 PM [facility] Name Value Range Interpretation Code Description Data [facility](s) Supporting Document(s) Prothrombin time (PT) 13.1 SECONDS 11.0 - 15.5 [facility] INR in Platelet poor plasma by Coagulation assay 0.98 0.93 - 1. 23 [facility] aPTT in Blood by Coagulation assay 29.6 SECONDS 24.8 - 36.7 [facility] \\BLDo\\INR INTERPRETATION\\BLDx\\ Therapeutic range for Coumadin and related oral anticoagulants. - International Normalized Ratio (INR): 2.0 - 3.0 for Venous Thrombosis, Pulmonary Embolus, Tissue heart valves, Acute CT Atrial Fibrillation, Valvular heart disease and recurrent Systemic Embolism. - International Normalized Ratio (INR): 2.5 - 3.5 for Mechanical Prosthetic valve. ID Date Data Source [id number] 04/29/2020 10:45:00 PM [facility] Name Value Range Interpretation Code Description Data Karla rce(s) Supporting Document(s) Lactate [Moles/volume] in Serum or Plasma 2.0 MMOL/L 0.2 - 2.2 [facility] ID Date Data Source [id number] 08/08/2019 10:10:00 AM EST [facility] ([facility] Name Value Range Interpretation Code Description Data Karla rce(s) Supporting Document(s) BUN 16 mg/dL 8 [facility] CHRONIC KIDNEY DISEASE STAGING PER NKF: MALE GFR INTERPRETATION: 20-49 YRS: >60 mL/min Normal 50-59 YRS: >56 mL/min Normal 60-69 YRS: >49 mL/min Normal 70-79 YRS: >42 mL/min Normal 80 and above >35 mL/min Normal FEMALE GRF INTERPRETATION: 20-39 YRS: >60 mL/min Normal 40-49 YRS: >58 mL/min Normal 50-59 YRS: >51 mL/min Normal 60-69 YRS: >45 mL/min Normal 70-79 YRS: >39 mL/min Normal 80 and above >32 mL/min NormalNORMAL RANGES Age WBC RBC HGB HCT MCV PLT Adult M 4.1-10.9 4.20-6.30 12.0-18.0 37.0-51.0 80-97 140-440 Adult F 4.1-10.9 4.04-5.48 12.0-18.0 37.0-51.0 80-97 140-440 0- 1 Yr 5.0-20.0 3.9-5.9 15-18 MV: 44 MV: 91 MV: 277 2-9 Yr. 6.0-17.0 3.8-5.4 11-13 MV: 37 MV: 78 MV: 300 10 Yrs. 5.0-13.0 3.8-5.4 12-15 MV: 39 MV: 80 MV: 250 NOTE: * FOR ADULT BLACK MALES AND FEMALES, NORMAL WBC IS 2.9-7.7 K/ML * FOR ADULT BLACK MALES AND FEMALES, NORMAL RBC,HGB, AND HCT IS 5% LESS SOURCE FOR DATA: [employer] 1800 OPERATION MANUAL( AUTOMATED BLOOD COUNTS AND DIFF.) APPENDIX B-3 Glu 94 mg/dL 70-110 [facility] ([facility] CHRONIC KIDNEY DISEASE STAGING PER NKF: MALE GFR INTERPRETATION: 20-49 YRS: >60 mL/min Normal 50-59 YRS: >56 mL/min Normal 60-69 YRS: >49 mL/min Normal 70-79 YRS: >42 mL/min Normal 80 and above >35 mL/min Normal FEMALE GRF INTERPRETATION: 20-39 YRS: >60 mL/min Normal 40-49 YRS: >58 mL/min Normal 50-59 YRS: >51 mL/min Normal 60-69 YRS: >45 mL/min Normal 70-79 YRS: >39 mL/min Normal 80 and above >32 mL/min NormalNORMAL RANGES Age WBC RBC HGB HCT MCV PLT Adult M 4.1-10.9 4.20-6.30 12.0-18.0 37.0-51.0 80-97 140-440 Adult F 4.1-10.9 4.04-5.48 12.0-18.0 37.0-51.0 80-97 140-440 0- 1 Yr 5.0-20.0 3.9-5.9 15-18 MV: 44 MV: 91 MV: 277 2-9 Yr. 6.0-17.0 3.8-5.4 11-13 MV: 37 MV: 78 MV: 300 10 Yrs. 5.0-13.0 3.8-5.4 12-15 MV: 39 MV: 80 MV: 250 NOTE: * FOR ADULT BLACK MALES AND FEMALES, NORMAL WBC IS 2.9-7.7 K/ML * FOR ADULT BLACK MALES AND FEMALES, NORMAL RBC,HGB, AND HCT IS 5% LESS SOURCE FOR DATA: [employer] 1800 OPERATION MANUAL( AUTOMATED BLOOD COUNTS AND DIFF.) APPENDIX B-3 BUN/Creatinine Ratio 21.5 Calc [employer] ([facility] CHRONIC KIDNEY DISEASE STAGING PER NKF: MALE GFR INTERPRETATION: 20-49 YRS: >60 mL/min Normal 50-59 YRS: >56 mL/min Normal 60-69 YRS: >49 mL/min Normal 70-79 YRS: >42 mL/min Normal 80 and above >35 mL/min Normal FEMALE GRF INTERPRETATION: 20-39 YRS: >60 mL/min Normal 40-49 YRS: >58 mL/min Normal 50-59 YRS: >51 mL/min Normal 60-69 YRS: >45 mL/min Normal 70-79 YRS: >39 mL/min Normal 80 and above >32 mL/min NormalNORMAL RANGES Age WBC RBC HGB HCT MCV PLT Adult M 4.1-10.9 4.20-6.30 12.0-18.0 37.0-51.0 80-97 140-440 Adult F 4.1-10.9 4.04-5.48 12.0-18.0 37.0-51.0 80-97 140-440 0- 1 Yr 5.0-20.0 3.9-5.9 15-18 MV: 44 MV: 91 MV: 277 2-9 Yr. 6.0-17.0 3.8-5.4 11-13 MV: 37 MV: 78 MV: 300 10 Yrs. 5.0-13.0 3.8-5.4 12-15 MV: 39 MV: 80 MV: 250 NOTE: * FOR ADULT BLACK MALES AND FEMALES, NORMAL WBC IS 2.9-7.7 K/ML * FOR ADULT BLACK MALES AND FEMALES, NORMAL RBC,HGB, AND HCT IS 5% LESS SOURCE FOR DATA: [employer] 1800 OPERATION MANUAL( AUTOMATED BLOOD COUNTS AND DIFF.) APPENDIX B-3 Creat 0.7 mg/dL 0.5-1.0 [facility] ([facility] CHRONIC KIDNEY DISEASE STAGING PER NKF: MALE GFR INTERPRETATION: 20-49 YRS: >60 mL/min Normal 50-59 YRS: >56 mL/min Normal 60-69 YRS: >49 mL/min Normal 70-79 YRS: >42 mL/min Normal 80 and above >35 mL/min Normal FEMALE GRF INTERPRETATION: 20-39 YRS: >60 mL/min Normal 40-49 YRS: >58 mL/min Normal 50-59 YRS: >51 mL/min Normal 60-69 YRS: >45 mL/min Normal 70-79 YRS: >39 mL/min Normal 80 and above >32 mL/min NormalNORMAL RANGES Age WBC RBC HGB HCT MCV PLT Adult M 4.1-10.9 4.20-6.30 12.0-18.0 37.0-51.0 80-97 140-440 Adult F 4.1-10.9 4.04-5.48 12.0-18.0 37.0-51.0 80-97 140-440 0- 1 Yr 5.0-20.0 3.9-5.9 15-18 MV: 44 MV: 91 MV: 277 2-9 Yr. 6.0-17.0 3.8-5.4 11-13 MV: 37 MV: 78 MV: 300 10 Yrs. 5.0-13.0 3.8-5.4 12-15 MV: 39 MV: 80 MV: 250 NOTE: * FOR ADULT BLACK MALES AND FEMALES, NORMAL WBC IS 2.9-7.7 K/ML * FOR ADULT BLACK MALES AND FEMALES, NORMAL RBC,HGB, AND HCT IS 5% LESS SOURCE FOR DATA: [employer] DYN 1800 OPERATION MANUAL( AUTOMATED BLOOD COUNTS AND DIFF.) APPENDIX B-3 Na 136 mmol/L 136-145 [facility] ([facility] CHRONIC KIDNEY DISEASE STAGING PER NKF: MALE GFR INTERPRETATION: 20-49 YRS: >60 mL/min Normal 50-59 YRS: >56 mL/min Normal 60-69 YRS: >49 mL/min Normal 70-79 YRS: >42 mL/min Normal 80 and above >35 mL/min Normal FEMALE GRF INTERPRETATION: 20-39 YRS: >60 mL/min Normal 40-49 YRS: >58 mL/min Normal 50-59 YRS: >51 mL/min Normal 60-69 YRS: >45 mL/min Normal 70-79 YRS: >39 mL/min Normal 80 and above >32 mL/min NormalNORMAL RANGES Age WBC RBC HGB HCT MCV PLT Adult M 4.1-10.9 4.20-6.30 12.0-18.0 37.0-51.0 80-97 140-440 Adult F 4.1-10.9 4.04-5.48 12.0-18.0 37.0-51.0 80-97 140-440 0- 1 Yr 5.0-20.0 3.9-5.9 15-18 MV: 44 MV: 91 MV: 277 2-9 Yr. 6.0-17.0 3.8-5.4 11-13 MV: 37 MV: 78 MV: 300 10 Yrs. 5.0-13.0 3.8-5.4 12-15 MV: 39 MV: 80 MV: 250 NOTE: * FOR ADULT BLACK MALES AND FEMALES, NORMAL WBC IS 2.9-7.7 K/ML * FOR ADULT BLACK MALES AND FEMALES, NORMAL RBC,HGB, AND HCT IS 5% LESS SOURCE FOR DATA: [employer] DYN 1800 OPERATION MANUAL( AUTOMATED BLOOD COUNTS AND DIFF.) APPENDIX B-3 K 4.1 mmol/L 3.5-5.1 [facility] CHRONIC KIDNEY DISEASE STAGING PER NKF: MALE GFR INTERPRETATION: 20-49 YRS: >60 mL/min Normal 50-59 YRS: >56 mL/min Normal 60-69 YRS: >49 mL/min Normal 70-79 YRS: >42 mL/min Normal 80 and above >35 mL/min Normal FEMALE GRF INTERPRETATION: 20-39 YRS: >60 mL/min Normal 40-49 YRS: >58 mL/min Normal 50-59 YRS: >51 mL/min Normal 60-69 YRS: >45 mL/min Normal 70-79 YRS: >39 mL/min Normal 80 and above >32 mL/min NormalNORMAL RANGES Age WBC RBC HGB HCT MCV PLT Adult M 4.1-10.9 4.20-6.30 12.0-18.0 37.0-51.0 80-97 140-440 Adult F 4.1-10.9 4.04-5.48 12.0-18.0 37.0-51.0 80-97 140-440 0- 1 Yr 5.0-20.0 3.9-5.9 15-18 MV: 44 MV: 91 MV: 277 2-9 Yr. 6.0-17.0 3.8-5.4 11-13 MV: 37 MV: 78 MV: 300 10 Yrs. 5.0-13.0 3.8-5.4 12-15 MV: 39 MV: 80 MV: 250 NOTE: * FOR ADULT BLACK MALES AND FEMALES, NORMAL WBC IS 2.9-7.7 K/ML * FOR ADULT BLACK MALES AND FEMALES, NORMAL RBC,HGB, AND HCT IS 5% LESS SOURCE FOR DATA: [employer]SH[employer]H DYN 1800 OPERATION MANUAL( AUTOMATED BLOOD COUNTS AND DIFF.) APPENDIX B-3 CL 98.3 mmol/L 98.0-107.0 [facility] CHRONIC KIDNEY DISEASE STAGING PER NKF: MALE GFR INTERPRETATION: 20-49 YRS: >60 mL/min Normal 50-59 YRS: >56 mL/min Normal 60-69 YRS: >49 mL/min Normal 70-79 YRS: >42 mL/min Normal 80 and above >35 mL/min Normal FEMALE GRF INTERPRETATION: 20-39 YRS: >60 mL/min Normal 40-49 YRS: >58 mL/min Normal 50-59 YRS: >51 mL/min Normal 60-69 YRS: >45 mL/min Normal 70-79 YRS: >39 mL/min Normal 80 and above >32 mL/min NormalNORMAL RANGES Age WBC RBC HGB HCT MCV PLT Adult M 4.1-10.9 4.20-6.30 12.0-18.0 37.0-51.0 80-97 140-440 Adult F 4.1-10.9 4.04-5.48 12.0-18.0 37.0-51.0 80-97 140-440 0- 1 Yr 5.0-20.0 3.9-5.9 15-18 MV: 44 MV: 91 MV: 277 2-9 Yr. 6.0-17.0 3.8-5.4 11-13 MV: 37 MV: 78 MV: 300 10 Yrs. 5.0-13.0 3.8-5.4 12-15 MV: 39 MV: 80 MV: 250 NOTE: * FOR ADULT BLACK MALES AND FEMALES, NORMAL WBC IS 2.9-7.7 K/ML * FOR ADULT BLACK MALES AND FEMALES, NORMAL RBC,HGB, AND HCT IS 5% LESS SOURCE FOR DATA: [employer] 1800 OPERATION MANUAL( AUTOMATED BLOOD COUNTS AND DIFF.) APPENDIX B-3 TP 6.9 g/dL 6.6-8.7 [facility] ([facility] CHRONIC KIDNEY DISEASE STAGING PER NKF: MALE GFR INTERPRETATION: 20-49 YRS: >60 mL/min Normal 50-59 YRS: >56 mL/min Normal 60-69 YRS: >49 mL/min Normal 70-79 YRS: >42 mL/min Normal 80 and above >35 mL/min Normal FEMALE GRF INTERPRETATION: 20-39 YRS: >60 mL/min Normal 40-49 YRS: >58 mL/min Normal 50-59 YRS: >51 mL/min Normal 60-69 YRS: >45 mL/min Normal 70-79 YRS: >39 mL/min Normal 80 and above >32 mL/min NormalNORMAL RANGES Age WBC RBC HGB HCT MCV PLT Adult M 4.1-10.9 4.20-6.30 12.0-18.0 37.0-51.0 80-97 140-440 Adult F 4.1-10.9 4.04-5.48 12.0-18.0 37.0-51.0 80-97 140-440 0- 1 Yr 5.0-20.0 3.9-5.9 15-18 MV: 44 MV: 91 MV: 277 2-9 Yr. 6.0-17.0 3.8-5.4 11-13 MV: 37 MV: 78 MV: 300 10 Yrs. 5.0-13.0 3.8-5.4 12-15 MV: 39 MV: 80 MV: 250 NOTE: * FOR ADULT BLACK MALES AND FEMALES, NORMAL WBC IS 2.9-7.7 K/ML * FOR ADULT BLACK MALES AND FEMALES, NORMAL RBC,HGB, AND HCT IS 5% LESS SOURCE FOR DATA: [employer]SH[employer]H DYN 1800 OPERATION MANUAL( AUTOMATED BLOOD COUNTS AND DIFF.) APPENDIX B-3 Co2 28.6 mmol/L 22.0-29.0 [facility] ([facility] CHRONIC KIDNEY DISEASE STAGING PER NKF: MALE GFR INTERPRETATION: 20-49 YRS: >60 mL/min Normal 50-59 YRS: >56 mL/min Normal 60-69 YRS: >49 mL/min Normal 70-79 YRS: >42 mL/min Normal 80 and above >35 mL/min Normal FEMALE GRF INTERPRETATION: 20-39 YRS: >60 mL/min Normal 40-49 YRS: >58 mL/min Normal 50-59 YRS: >51 mL/min Normal 60-69 YRS: >45 mL/min Normal 70-79 YRS: >39 mL/min Normal 80 and above >32 mL/min NormalNORMAL RANGES Age WBC RBC HGB HCT MCV PLT Adult M 4.1-10.9 4.20-6.30 12.0-18.0 37.0-51.0 80-97 140-440 Adult F 4.1-10.9 4.04-5.48 12.0-18.0 37.0-51.0 80-97 140-440 0- 1 Yr 5.0-20.0 3.9-5.9 15-18 MV: 44 MV: 91 MV: 277 2-9 Yr. 6.0-17.0 3.8-5.4 11-13 MV: 37 MV: 78 MV: 300 10 Yrs. 5.0-13.0 3.8-5.4 12-15 MV: 39 MV: 80 MV: 250 NOTE: * FOR ADULT BLACK MALES AND FEMALES, NORMAL WBC IS 2.9-7.7 K/ML * FOR ADULT BLACK MALES AND FEMALES, NORMAL RBC,HGB, AND HCT IS 5% LESS SOURCE FOR DATA: [facility] 1800 OPERATION MANUAL( AUTOMATED BLOOD COUNTS AND DIFF.) APPENDIX B-3 CA 9.7 mg/dL 8.6-10.2 [facility] ([facility] CHRONIC KIDNEY DISEASE STAGING PER NKF: MALE GFR INTERPRETATION: 20-49 YRS: >60 mL/min Normal 50-59 YRS: >56 mL/min Normal 60-69 YRS: >49 mL/min Normal 70-79 YRS: >42 mL/min Normal 80 and above >35 mL/min Normal FEMALE GRF INTERPRETATION: 20-39 YRS: >60 mL/min Normal 40-49 YRS: >58 mL/min Normal 50-59 YRS: >51 mL/min Normal 60-69 YRS: >45 mL/min Normal 70-79 YRS: >39 mL/min Normal 80 and above >32 mL/min NormalNORMAL RANGES Age WBC RBC HGB HCT MCV PLT Adult M 4.1-10.9 4.20-6.30 12.0-18.0 37.0-51.0 80-97 140-440 Adult F 4.1-10.9 4.04-5.48 12.0-18.0 37.0-51.0 80-97 140-440 0- 1 Yr 5.0-20.0 3.9-5.9 15-18 MV: 44 MV: 91 MV: 277 2-9 Yr. 6.0-17.0 3.8-5.4 11-13 MV: 37 MV: 78 MV: 300 10 Yrs. 5.0-13.0 3.8-5.4 12-15 MV: 39 MV: 80 MV: 250 NOTE: * FOR ADULT BLACK MALES AND FEMALES, NORMAL WBC IS 2.9-7.7 K/ML * FOR ADULT BLACK MALES AND FEMALES, NORMAL RBC,HGB, AND HCT IS 5% LESS SOURCE FOR DATA: [employer] 1800 OPERATION MANUAL( AUTOMATED BLOOD COUNTS AND DIFF.) APPENDIX B-3 Alb 4.4 g/dL 3.4-4.8 [facility] ([facility] CHRONIC KIDNEY DISEASE STAGING PER NKF: MALE GFR INTERPRETATION: 20-49 YRS: >60 mL/min Normal 50-59 YRS: >56 mL/min Normal 60-69 YRS: >49 mL/min Normal 70-79 YRS: >42 mL/min Normal 80 and above >35 mL/min Normal FEMALE GRF INTERPRETATION: 20-39 YRS: >60 mL/min Normal 40-49 YRS: >58 mL/min Normal 50-59 YRS: >51 mL/min Normal 60-69 YRS: >45 mL/min Normal 70-79 YRS: >39 mL/min Normal 80 and above >32 mL/min NormalNORMAL RANGES Age WBC RBC HGB HCT MCV PLT Adult M 4.1-10.9 4.20-6.30 12.0-18.0 37.0-51.0 80-97 140-440 Adult F 4.1-10.9 4.04-5.48 12.0-18.0 37.0-51.0 80-97 140-440 0- 1 Yr 5.0-20.0 3.9-5.9 15-18 MV: 44 MV: 91 MV: 277 2-9 Yr. 6.0-17.0 3.8-5.4 11-13 MV: 37 MV: 78 MV: 300 10 Yrs. 5.0-13.0 3.8-5.4 12-15 MV: 39 MV: 80 MV: 250 NOTE: * FOR ADULT BLACK MALES AND FEMALES, NORMAL WBC IS 2.9-7.7 K/ML * FOR ADULT BLACK MALES AND FEMALES, NORMAL RBC,HGB, AND HCT IS 5% LESS SOURCE FOR DATA: Magento 1800 OPERATION MANUAL( AUTOMATED BLOOD COUNTS AND DIFF.) APPENDIX B-3 A/G Ratio 1.7 Calc [facility] ([facility] CHRONIC KIDNEY DISEASE STAGING PER NKF: MALE GFR INTERPRETATION: 20-49 YRS: >60 mL/min Normal 50-59 YRS: >56 mL/min Normal 60-69 YRS: >49 mL/min Normal 70-79 YRS: >42 mL/min Normal 80 and above >35 mL/min Normal FEMALE GRF INTERPRETATION: 20-39 YRS: >60 mL/min Normal 40-49 YRS: >58 mL/min Normal 50-59 YRS: >51 mL/min Normal 60-69 YRS: >45 mL/min Normal 70-79 YRS: >39 mL/min Normal 80 and above >32 mL/min NormalNORMAL RANGES Age WBC RBC HGB HCT MCV PLT Adult M 4.1-10.9 4.20-6.30 12.0-18.0 37.0-51.0 80-97 140-440 Adult F 4.1-10.9 4.04-5.48 12.0-18.0 37.0-51.0 80-97 140-440 0- 1 Yr 5.0-20.0 3.9-5.9 15-18 MV: 44 MV: 91 MV: 277 2-9 Yr. 6.0-17.0 3.8-5.4 11-13 MV: 37 MV: 78 MV: 300 10 Yrs. 5.0-13.0 3.8-5.4 12-15 MV: 39 MV: 80 MV: 250 NOTE: * FOR ADULT BLACK MALES AND FEMALES, NORMAL WBC IS 2.9-7.7 K/ML * FOR ADULT BLACK MALES AND FEMALES, NORMAL RBC,HGB, AND HCT IS 5% LESS SOURCE FOR DATA: Altitude Digital DYN 1800 OPERATION MANUAL( AUTOMATED BLOOD COUNTS AND DIFF.) APPENDIX B-3 Globulin 2.5 Calc [employer] ([facility] CHRONIC KIDNEY DISEASE STAGING PER NKF: MALE GFR INTERPRETATION: 20-49 YRS: >60 mL/min Normal 50-59 YRS: >56 mL/min Normal 60-69 YRS: >49 mL/min Normal 70-79 YRS: >42 mL/min Normal 80 and above >35 mL/min Normal FEMALE GRF INTERPRETATION: 20-39 YRS: >60 mL/min Normal 40-49 YRS: >58 mL/min Normal 50-59 YRS: >51 mL/min Normal 60-69 YRS: >45 mL/min Normal 70-79 YRS: >39 mL/min Normal 80 and above >32 mL/min NormalNORMAL RANGES Age WBC RBC HGB HCT MCV PLT Adult M 4.1-10.9 4.20-6.30 12.0-18.0 37.0-51.0 80-97 140-440 Adult F 4.1-10.9 4.04-5.48 12.0-18.0 37.0-51.0 80-97 140-440 0- 1 Yr 5.0-20.0 3.9-5.9 15-18 MV: 44 MV: 91 MV: 277 2-9 Yr. 6.0-17.0 3.8-5.4 11-13 MV: 37 MV: 78 MV: 300 10 Yrs. 5.0-13.0 3.8-5.4 12-15 MV: 39 MV: 80 MV: 250 NOTE: * FOR ADULT BLACK MALES AND FEMALES, NORMAL WBC IS 2.9-7.7 K/ML * FOR ADULT BLACK MALES AND FEMALES, NORMAL RBC,HGB, AND HCT IS 5% LESS SOURCE FOR DATA: Altitude Digital DYN 1800 OPERATION MANUAL( AUTOMATED BLOOD COUNTS AND DIFF.) APPENDIX B-3 Alp 77.7 U/L 35-129 [facility] ([facility] CHRONIC KIDNEY DISEASE STAGING PER NKF: MALE GFR INTERPRETATION: 20-49 YRS: >60 mL/min Normal 50-59 YRS: >56 mL/min Normal 60-69 YRS: >49 mL/min Normal 70-79 YRS: >42 mL/min Normal 80 and above >35 mL/min Normal FEMALE GRF INTERPRETATION: 20-39 YRS: >60 mL/min Normal 40-49 YRS: >58 mL/min Normal 50-59 YRS: >51 mL/min Normal 60-69 YRS: >45 mL/min Normal 70-79 YRS: >39 mL/min Normal 80 and above >32 mL/min NormalNORMAL RANGES Age WBC RBC HGB HCT MCV PLT Adult M 4.1-10.9 4.20-6.30 12.0-18.0 37.0-51.0 80-97 140-440 Adult F 4.1-10.9 4.04-5.48 12.0-18.0 37.0-51.0 80-97 140-440 0- 1 Yr 5.0-20.0 3.9-5.9 15-18 MV: 44 MV: 91 MV: 277 2-9 Yr. 6.0-17.0 3.8-5.4 11-13 MV: 37 MV: 78 MV: 300 10 Yrs. 5.0-13.0 3.8-5.4 12-15 MV: 39 MV: 80 MV: 250 NOTE: * FOR ADULT BLACK MALES AND FEMALES, NORMAL WBC IS 2.9-7.7 K/ML * FOR ADULT BLACK MALES AND FEMALES, NORMAL RBC,HGB, AND HCT IS 5% LESS SOURCE FOR DATA: ASHUTOSH DYN 1800 OPERATION MANUAL( AUTOMATED BLOOD COUNTS AND DIFF.) APPENDIX B-3 Alt (SGPT) 18 U/L 0-41 [facility] CHRONIC KIDNEY DISEASE STAGING PER NKF: MALE GFR INTERPRETATION: 20-49 YRS: >60 mL/min Normal 50-59 YRS: >56 mL/min Normal 60-69 YRS: >49 mL/min Normal 70-79 YRS: >42 mL/min Normal 80 and above >35 mL/min Normal FEMALE GRF INTERPRETATION: 20-39 YRS: >60 mL/min Normal 40-49 YRS: >58 mL/min Normal 50-59 YRS: >51 mL/min Normal 60-69 YRS: >45 mL/min Normal 70-79 YRS: >39 mL/min Normal 80 and above >32 mL/min NormalNORMAL RANGES Age WBC RBC HGB HCT MCV PLT Adult M 4.1-10.9 4.20-6.30 12.0-18.0 37.0-51.0 80-97 140-440 Adult F 4.1-10.9 4.04-5.48 12.0-18.0 37.0-51.0 80-97 140-440 0- 1 Yr 5.0-20.0 3.9-5.9 15-18 MV: 44 MV: 91 MV: 277 2-9 Yr. 6.0-17.0 3.8-5.4 11-13 MV: 37 MV: 78 MV: 300 10 Yrs. 5.0-13.0 3.8-5.4 12-15 MV: 39 MV: 80 MV: 250 NOTE: * FOR ADULT BLACK MALES AND FEMALES, NORMAL WBC IS 2.9-7.7 K/ML * FOR ADULT BLACK MALES AND FEMALES, NORMAL RBC,HGB, AND HCT IS 5% LESS SOURCE FOR DATA: Magento 1800 OPERATION MANUAL( AUTOMATED BLOOD COUNTS AND DIFF.) APPENDIX B-3 Ast (Sgot) 18 U/L 0-40 [facility] ([facility] CHRONIC KIDNEY DISEASE STAGING PER NKF: MALE GFR INTERPRETATION: 20-49 YRS: >60 mL/min Normal 50-59 YRS: >56 mL/min Normal 60-69 YRS: >49 mL/min Normal 70-79 YRS: >42 mL/min Normal 80 and above >35 mL/min Normal FEMALE GRF INTERPRETATION: 20-39 YRS: >60 mL/min Normal 40-49 YRS: >58 mL/min Normal 50-59 YRS: >51 mL/min Normal 60-69 YRS: >45 mL/min Normal 70-79 YRS: >39 mL/min Normal 80 and above >32 mL/min NormalNORMAL RANGES Age WBC RBC HGB HCT MCV PLT Adult M 4.1-10.9 4.20-6.30 12.0-18.0 37.0-51.0 80-97 140-440 Adult F 4.1-10.9 4.04-5.48 12.0-18.0 37.0-51.0 80-97 140-440 0- 1 Yr 5.0-20.0 3.9-5.9 15-18 MV: 44 MV: 91 MV: 277 2-9 Yr. 6.0-17.0 3.8-5.4 11-13 MV: 37 MV: 78 MV: 300 10 Yrs. 5.0-13.0 3.8-5.4 12-15 MV: 39 MV: 80 MV: 250 NOTE: * FOR ADULT BLACK MALES AND FEMALES, NORMAL WBC IS 2.9-7.7 K/ML * FOR ADULT BLACK MALES AND FEMALES, NORMAL RBC,HGB, AND HCT IS 5% LESS SOURCE FOR DATA: ASHUTOSH DYN 1800 OPERATION MANUAL( AUTOMATED BLOOD COUNTS AND DIFF.) APPENDIX B-3 Osmolality-Calculated 272.5 Calc [facility] ([facility] CHRONIC KIDNEY DISEASE STAGING PER NKF: MALE GFR INTERPRETATION: 20-49 YRS: >60 mL/min Normal 50-59 YRS: >56 mL/min Normal 60-69 YRS: >49 mL/min Normal 70-79 YRS: >42 mL/min Normal 80 and above >35 mL/min Normal FEMALE GRF INTERPRETATION: 20-39 YRS: >60 mL/min Normal 40-49 YRS: >58 mL/min Normal 50-59 YRS: >51 mL/min Normal 60-69 YRS: >45 mL/min Normal 70-79 YRS: >39 mL/min Normal 80 and above >32 mL/min NormalNORMAL RANGES Age WBC RBC HGB HCT MCV PLT Adult M 4.1-10.9 4.20-6.30 12.0-18.0 37.0-51.0 80-97 140-440 Adult F 4.1-10.9 4.04-5.48 12.0-18.0 37.0-51.0 80-97 140-440 0- 1 Yr 5.0-20.0 3.9-5.9 15-18 MV: 44 MV: 91 MV: 277 2-9 Yr. 6.0-17.0 3.8-5.4 11-13 MV: 37 MV: 78 MV: 300 10 Yrs. 5.0-13.0 3.8-5.4 12-15 MV: 39 MV: 80 MV: 250 NOTE: * FOR ADULT BLACK MALES AND FEMALES, NORMAL WBC IS 2.9-7.7 K/ML * FOR ADULT BLACK MALES AND FEMALES, NORMAL RBC,HGB, AND HCT IS 5% LESS SOURCE FOR DATA: ASHUTOSH DYN 1800 OPERATION MANUAL( AUTOMATED BLOOD COUNTS AND DIFF.) APPENDIX B-3 Tbili 1.44 mg/dL 0.0-1.2 Above high normal [facility] ([facility] CHRONIC KIDNEY DISEASE STAGING PER NKF: MALE GFR INTERPRETATION: 20-49 YRS: >60 mL/min Normal 50-59 YRS: >56 mL/min Normal 60-69 YRS: >49 mL/min Normal 70-79 YRS: >42 mL/min Normal 80 and above >35 mL/min Normal FEMALE GRF INTERPRETATION: 20-39 YRS: >60 mL/min Normal 40-49 YRS: >58 mL/min Normal 50-59 YRS: >51 mL/min Normal 60-69 YRS: >45 mL/min Normal 70-79 YRS: >39 mL/min Normal 80 and above >32 mL/min NormalNORMAL RANGES Age WBC RBC HGB HCT MCV PLT Adult M 4.1-10.9 4.20-6.30 12.0-18.0 37.0-51.0 80-97 140-440 Adult F 4.1-10.9 4.04-5.48 12.0-18.0 37.0-51.0 80-97 140-440 0- 1 Yr 5.0-20.0 3.9-5.9 15-18 MV: 44 MV: 91 MV: 277 2-9 Yr. 6.0-17.0 3.8-5.4 11-13 MV: 37 MV: 78 MV: 300 10 Yrs. 5.0-13.0 3.8-5.4 12-15 MV: 39 MV: 80 MV: 250 NOTE: * FOR ADULT BLACK MALES AND FEMALES, NORMAL WBC IS 2.9-7.7 K/ML * FOR ADULT BLACK MALES AND FEMALES, NORMAL RBC,HGB, AND HCT IS 5% LESS SOURCE FOR DATA: ASHUTOSH DYN 1800 OPERATION MANUAL( AUTOMATED BLOOD COUNTS AND DIFF.) APPENDIX B-3 Anion Gap 13 mmol/L E[facility] ([facility] CHRONIC KIDNEY DISEASE STAGING PER NKF: MALE GFR INTERPRETATION: 20-49 YRS: >60 mL/min Normal 50-59 YRS: >56 mL/min Normal 60-69 YRS: >49 mL/min Normal 70-79 YRS: >42 mL/min Normal 80 and above >35 mL/min Normal FEMALE GRF INTERPRETATION: 20-39 YRS: >60 mL/min Normal 40-49 YRS: >58 mL/min Normal 50-59 YRS: >51 mL/min Normal 60-69 YRS: >45 mL/min Normal 70-79 YRS: >39 mL/min Normal 80 and above >32 mL/min NormalNORMAL RANGES Age WBC RBC HGB HCT MCV PLT Adult M 4.1-10.9 4.20-6.30 12.0-18.0 37.0-51.0 80-97 140-440 Adult F 4.1-10.9 4.04-5.48 12.0-18.0 37.0-51.0 80-97 140-440 0- 1 Yr 5.0-20.0 3.9-5.9 15-18 MV: 44 MV: 91 MV: 277 2-9 Yr. 6.0-17.0 3.8-5.4 11-13 MV: 37 MV: 78 MV: 300 10 Yrs. 5.0-13.0 3.8-5.4 12-15 MV: 39 MV: 80 MV: 250 NOTE: * FOR ADULT BLACK MALES AND FEMALES, NORMAL WBC IS 2.9-7.7 K/ML * FOR ADULT BLACK MALES AND FEMALES, NORMAL RBC,HGB, AND HCT IS 5% LESS SOURCE FOR DATA: ASHUTOSH DYN 1800 OPERATION MANUAL( AUTOMATED BLOOD COUNTS AND DIFF.) APPENDIX B-3 eGFR Non-Afr. [place] 90 # [facility] ([facility] CHRONIC KIDNEY DISEASE STAGING PER NKF: MALE GFR INTERPRETATION: 20-49 YRS: >60 mL/min Normal 50-59 YRS: >56 mL/min Normal 60-69 YRS: >49 mL/min Normal 70-79 YRS: >42 mL/min Normal 80 and above >35 mL/min Normal FEMALE GRF INTERPRETATION: 20-39 YRS: >60 mL/min Normal 40-49 YRS: >58 mL/min Normal 50-59 YRS: >51 mL/min Normal 60-69 YRS: >45 mL/min Normal 70-79 YRS: >39 mL/min Normal 80 and above >32 mL/min NormalNORMAL RANGES Age WBC RBC HGB HCT MCV PLT Adult M 4.1-10.9 4.20-6.30 12.0-18.0 37.0-51.0 80-97 140-440 Adult F 4.1-10.9 4.04-5.48 12.0-18.0 37.0-51.0 80-97 140-440 0- 1 Yr 5.0-20.0 3.9-5.9 15-18 MV: 44 MV: 91 MV: 277 2-9 Yr. 6.0-17.0 3.8-5.4 11-13 MV: 37 MV: 78 MV: 300 10 Yrs. 5.0-13.0 3.8-5.4 12-15 MV: 39 MV: 80 MV: 250 NOTE: * FOR ADULT BLACK MALES AND FEMALES, NORMAL WBC IS 2.9-7.7 K/ML * FOR ADULT BLACK MALES AND FEMALES, NORMAL RBC,HGB, AND HCT IS 5% LESS SOURCE FOR DATA: Magento 1800 OPERATION MANUAL( AUTOMATED BLOOD COUNTS AND DIFF.) APPENDIX B-3 eGFR 104 # [facility] ( [facility] CHRONIC KIDNEY DISEASE STAGING PER NKF: MALE GFR INTERPRETATION: 20-49 YRS: >60 mL/min Normal 50-59 YRS: >56 mL/min Normal 60-69 YRS: >49 mL/min Normal 70-79 YRS: >42 mL/min Normal 80 and above >35 mL/min Normal FEMALE GRF INTERPRETATION: 20-39 YRS: >60 mL/min Normal 40-49 YRS: >58 mL/min Normal 50-59 YRS: >51 mL/min Normal 60-69 YRS: >45 mL/min Normal 70-79 YRS: >39 mL/min Normal 80 and above >32 mL/min NormalNORMAL RANGES Age WBC RBC HGB HCT MCV PLT Adult M 4.1-10.9 4.20-6.30 12.0-18.0 37.0-51.0 80-97 140-440 Adult F 4.1-10.9 4.04-5.48 12.0-18.0 37.0-51.0 80-97 140-440 0- 1 Yr 5.0-20.0 3.9-5.9 15-18 MV: 44 MV: 91 MV: 277 2-9 Yr. 6.0-17.0 3.8-5.4 11-13 MV: 37 MV: 78 MV: 300 10 Yrs. 5.0-13.0 3.8-5.4 12-15 MV: 39 MV: 80 MV: 250 NOTE: * FOR ADULT BLACK MALES AND FEMALES, NORMAL WBC IS 2.9-7.7 K/ML * FOR ADULT BLACK MALES AND FEMALES, NORMAL RBC,HGB, AND HCT IS 5% LESS SOURCE FOR DATA: Magento 1800 OPERATION MANUAL( AUTOMATED BLOOD COUNTS AND DIFF.) APPENDIX B-3 ID Date Data Source [id number] 08/08/2019 10:10:00 AM EST [facility] ([facility] Name Value Range Interpretation Code Description Data Karla rce(s) Supporting Document(s) WBC 7.6 10E3/uL 4.1-10.9 [facility] ([facility] CHRONIC KIDNEY DISEASE STAGING PER NKF: MALE GFR INTERPRETATION: 20-49 YRS: >60 mL/min Normal 50-59 YRS: >56 mL/min Normal 60-69 YRS: >49 mL/min Normal 70-79 YRS: >42 mL/min Normal 80 and above >35 mL/min Normal FEMALE GRF INTERPRETATION: 20-39 YRS: >60 mL/min Normal 40-49 YRS: >58 mL/min Normal 50-59 YRS: >51 mL/min Normal 60-69 YRS: >45 mL/min Normal 70-79 YRS: >39 mL/min Normal 80 and above >32 mL/min NormalNORMAL RANGES Age WBC RBC HGB HCT MCV PLT Adult M 4.1-10.9 4.20-6.30 12.0-18.0 37.0-51.0 80-97 140-440 Adult F 4.1-10.9 4.04-5.48 12.0-18.0 37.0-51.0 80-97 140-440 0- 1 Yr 5.0-20.0 3.9-5.9 15-18 MV: 44 MV: 91 MV: 277 2-9 Yr. 6.0-17.0 3.8-5.4 11-13 MV: 37 MV: 78 MV: 300 10 Yrs. 5.0-13.0 3.8-5.4 12-15 MV: 39 MV: 80 MV: 250 NOTE: * FOR ADULT BLACK MALES AND FEMALES, NORMAL WBC IS 2.9-7.7 K/ML * FOR ADULT BLACK MALES AND FEMALES, NORMAL RBC,HGB, AND HCT IS 5% LESS SOURCE FOR DATA: Altitude Digital DYN 1800 OPERATION MANUAL( AUTOMATED BLOOD COUNTS AND DIFF.) APPENDIX B-3 RBC 4.40 10E6/uL 4.20-6.30 [facility] ([facility] CHRONIC KIDNEY DISEASE STAGING PER NKF: MALE GFR INTERPRETATION: 20-49 YRS: >60 mL/min Normal 50-59 YRS: >56 mL/min Normal 60-69 YRS: >49 mL/min Normal 70-79 YRS: >42 mL/min Normal 80 and above >35 mL/min Normal FEMALE GRF INTERPRETATION: 20-39 YRS: >60 mL/min Normal 40-49 YRS: >58 mL/min Normal 50-59 YRS: >51 mL/min Normal 60-69 YRS: >45 mL/min Normal 70-79 YRS: >39 mL/min Normal 80 and above >32 mL/min NormalNORMAL RANGES Age WBC RBC HGB HCT MCV PLT Adult M 4.1-10.9 4.20-6.30 12.0-18.0 37.0-51.0 80-97 140-440 Adult F 4.1-10.9 4.04-5.48 12.0-18.0 37.0-51.0 80-97 140-440 0- 1 Yr 5.0-20.0 3.9-5.9 15-18 MV: 44 MV: 91 MV: 277 2-9 Yr. 6.0-17.0 3.8-5.4 11-13 MV: 37 MV: 78 MV: 300 10 Yrs. 5.0-13.0 3.8-5.4 12-15 MV: 39 MV: 80 MV: 250 NOTE: * FOR ADULT BLACK MALES AND FEMALES, NORMAL WBC IS 2.9-7.7 K/ML * FOR ADULT BLACK MALES AND FEMALES, NORMAL RBC,HGB, AND HCT IS 5% LESS SOURCE FOR DATA: ASHUTOSH DYN 1800 OPERATION MANUAL( AUTOMATED BLOOD COUNTS AND DIFF.) APPENDIX B-3 HGB 13.5 g/dL 12.0-18.0 [facility] ([facility] CHRONIC KIDNEY DISEASE STAGING PER NKF: MALE GFR INTERPRETATION: 20-49 YRS: >60 mL/min Normal 50-59 YRS: >56 mL/min Normal 60-69 YRS: >49 mL/min Normal 70-79 YRS: >42 mL/min Normal 80 and above >35 mL/min Normal FEMALE GRF INTERPRETATION: 20-39 YRS: >60 mL/min Normal 40-49 YRS: >58 mL/min Normal 50-59 YRS: >51 mL/min Normal 60-69 YRS: >45 mL/min Normal 70-79 YRS: >39 mL/min Normal 80 and above >32 mL/min NormalNORMAL RANGES Age WBC RBC HGB HCT MCV PLT Adult M 4.1-10.9 4.20-6.30 12.0-18.0 37.0-51.0 80-97 140-440 Adult F 4.1-10.9 4.04-5.48 12.0-18.0 37.0-51.0 80-97 140-440 0- 1 Yr 5.0-20.0 3.9-5.9 15-18 MV: 44 MV: 91 MV: 277 2-9 Yr. 6.0-17.0 3.8-5.4 11-13 MV: 37 MV: 78 MV: 300 10 Yrs. 5.0-13.0 3.8-5.4 12-15 MV: 39 MV: 80 MV: 250 NOTE: * FOR ADULT BLACK MALES AND FEMALES, NORMAL WBC IS 2.9-7.7 K/ML * FOR ADULT BLACK MALES AND FEMALES, NORMAL RBC,HGB, AND HCT IS 5% LESS SOURCE FOR DATA: Alt[employer] Digital DYN 1800 OPERATION MANUAL( AUTOMATED BLOOD COUNTS AND DIFF.) APPENDIX B-3 HCT 39.8 % 37.0-51.0 [facility] ([facility] CHRONIC KIDNEY DISEASE STAGING PER NKF: MALE GFR INTERPRETATION: 20-49 YRS: >60 mL/min Normal 50-59 YRS: >56 mL/min Normal 60-69 YRS: >49 mL/min Normal 70-79 YRS: >42 mL/min Normal 80 and above >35 mL/min Normal FEMALE GRF INTERPRETATION: 20-39 YRS: >60 mL/min Normal 40-49 YRS: >58 mL/min Normal 50-59 YRS: >51 mL/min Normal 60-69 YRS: >45 mL/min Normal 70-79 YRS: >39 mL/min Normal 80 and above >32 mL/min NormalNORMAL RANGES Age WBC RBC HGB HCT MCV PLT Adult M 4.1-10.9 4.20-6.30 12.0-18.0 37.0-51.0 80-97 140-440 Adult F 4.1-10.9 4.04-5.48 12.0-18.0 37.0-51.0 80-97 140-440 0- 1 Yr 5.0-20.0 3.9-5.9 15-18 MV: 44 MV: 91 MV: 277 2-9 Yr. 6.0-17.0 3.8-5.4 11-13 MV: 37 MV: 78 MV: 300 10 Yrs. 5.0-13.0 3.8-5.4 12-15 MV: 39 MV: 80 MV: 250 NOTE: * FOR ADULT BLACK MALES AND FEMALES, NORMAL WBC IS 2.9-7.7 K/ML * FOR ADULT BLACK MALES AND FEMALES, NORMAL RBC,HGB, AND HCT IS 5% LESS SOURCE FOR DATA: ASHUTOSH DYN 1800 OPERATION MANUAL( AUTOMATED BLOOD COUNTS AND DIFF.) APPENDIX B-3 MCV 90.5 fL 80.0-97.0 [facility] ([facility] CHRONIC KIDNEY DISEASE STAGING PER NKF: MALE GFR INTERPRETATION: 20-49 YRS: >60 mL/min Normal 50-59 YRS: >56 mL/min Normal 60-69 YRS: >49 mL/min Normal 70-79 YRS: >42 mL/min Normal 80 and above >35 mL/min Normal FEMALE GRF INTERPRETATION: 20-39 YRS: >60 mL/min Normal 40-49 YRS: >58 mL/min Normal 50-59 YRS: >51 mL/min Normal 60-69 YRS: >45 mL/min Normal 70-79 YRS: >39 mL/min Normal 80 and above >32 mL/min NormalNORMAL RANGES Age WBC RBC HGB HCT MCV PLT Adult M 4.1-10.9 4.20-6.30 12.0-18.0 37.0-51.0 80-97 140-440 Adult F 4.1-10.9 4.04-5.48 12.0-18.0 37.0-51.0 -97 140-440 0- 1 Yr 5.0-20.0 3.9-5.9 15-18 MV: 44 MV: 91 MV: 277 2-9 Yr. 6.0-17.0 3.8-5.4 11-13 MV: 37 MV: 78 MV: 300 10 Yrs. 5.0-13.0 3.8-5.4 12-15 MV: 39 MV: 80 MV: 250 NOTE: * FOR ADULT BLACK MALES AND FEMALES, NORMAL WBC IS 2.9-7.7 K/ML * FOR ADULT BLACK MALES AND FEMALES, NORMAL RBC,HGB, AND HCT IS 5% LESS SOURCE FOR DATA: ASHUTOSH DYN 1800 OPERATION MANUAL( AUTOMATED BLOOD COUNTS AND DIFF.) APPENDIX B-3 PLT 270 10E3/uL 140-440 [facility] ([facility] CHRONIC KIDNEY DISEASE STAGING PER NKF: MALE GFR INTERPRETATION: 20-49 YRS: >60 mL/min Normal 50-59 YRS: >56 mL/min Normal 60-69 YRS: >49 mL/min Normal 70-79 YRS: >42 mL/min Normal 80 and above >35 mL/min Normal FEMALE GRF INTERPRETATION: 20-39 YRS: >60 mL/min Normal 40-49 YRS: >58 mL/min Normal 50-59 YRS: >51 mL/min Normal 60-69 YRS: >45 mL/min Normal 70-79 YRS: >39 mL/min Normal 80 and above >32 mL/min NormalNORMAL RANGES Age WBC RBC HGB HCT MCV PLT Adult M 4.1-10.9 4.20-6.30 12.0-18.0 37.0-51.0 80-97 140-440 Adult F 4.1-10.9 4.04-5.48 12.0-18.0 37.0-51.0 80-97 140-440 0- 1 Yr 5.0-20.0 3.9-5.9 15-18 MV: 44 MV: 91 MV: 277 2-9 Yr. 6.0-17.0 3.8-5.4 11-13 MV: 37 MV: 78 MV: 300 10 Yrs. 5.0-13.0 3.8-5.4 12-15 MV: 39 MV: 80 MV: 250 NOTE: * FOR ADULT BLACK MALES AND FEMALES, NORMAL WBC IS 2.9-7.7 K/ML * FOR ADULT BLACK MALES AND FEMALES, NORMAL RBC,HGB, AND HCT IS 5% LESS SOURCE FOR DATA: ASHUTOSH DYN 1800 OPERATION MANUAL( AUTOMATED BLOOD COUNTS AND DIFF.) APPENDIX B-3 MCH 30.7 pg 26.0-32.0 [facility] ([facility] CHRONIC KIDNEY DISEASE STAGING PER NKF: MALE GFR INTERPRETATION: 20-49 YRS: >60 mL/min Normal 50-59 YRS: >56 mL/min Normal 60-69 YRS: >49 mL/min Normal 70-79 YRS: >42 mL/min Normal 80 and above >35 mL/min Normal FEMALE GRF INTERPRETATION: 20-39 YRS: >60 mL/min Normal 40-49 YRS: >58 mL/min Normal 50-59 YRS: >51 mL/min Normal 60-69 YRS: >45 mL/min Normal 70-79 YRS: >39 mL/min Normal 80 and above >32 mL/min NormalNORMAL RANGES Age WBC RBC HGB HCT MCV PLT Adult M 4.1-10.9 4.20-6.30 12.0-18.0 37.0-51.0 80-97 140-440 Adult F 4.1-10.9 4.04-5.48 12.0-18.0 37.0-51.0 80-97 140-440 0- 1 Yr 5.0-20.0 3.9-5.9 15-18 MV: 44 MV: 91 MV: 277 2-9 Yr. 6.0-17.0 3.8-5.4 11-13 MV: 37 MV: 78 MV: 300 10 Yrs. 5.0-13.0 3.8-5.4 12-15 MV: 39 MV: 80 MV: 250 NOTE: * FOR ADULT BLACK MALES AND FEMALES, NORMAL WBC IS 2.9-7.7 K/ML * FOR ADULT BLACK MALES AND FEMALES, NORMAL RBC,HGB, AND HCT IS 5% LESS SOURCE FOR DATA: [employer] 1800 OPERATION MANUAL( AUTOMATED BLOOD COUNTS AND DIFF.) APPENDIX B-3 MCHC 33.9 g/dL 31.0-36.0 [facility] ([facility] CHRONIC KIDNEY DISEASE STAGING PER NKF: MALE GFR INTERPRETATION: 20-49 YRS: >60 mL/min Normal 50-59 YRS: >56 mL/min Normal 60-69 YRS: >49 mL/min Normal 70-79 YRS: >42 mL/min Normal 80 and above >35 mL/min Normal FEMALE GRF INTERPRETATION: 20-39 YRS: >60 mL/min Normal 40-49 YRS: >58 mL/min Normal 50-59 YRS: >51 mL/min Normal 60-69 YRS: >45 mL/min Normal 70-79 YRS: >39 mL/min Normal 80 and above >32 mL/min NormalNORMAL RANGES Age WBC RBC HGB HCT MCV PLT Adult M 4.1-10.9 4.20-6.30 12.0-18.0 37.0-51.0 80-97 140-440 Adult F 4.1-10.9 4.04-5.48 12.0-18.0 37.0-51.0 80-97 140-440 0- 1 Yr 5.0-20.0 3.9-5.9 15-18 MV: 44 MV: 91 MV: 277 2-9 Yr. 6.0-17.0 3.8-5.4 11-13 MV: 37 MV: 78 MV: 300 10 Yrs. 5.0-13.0 3.8-5.4 12-15 MV: 39 MV: 80 MV: 250 NOTE: * FOR ADULT BLACK MALES AND FEMALES, NORMAL WBC IS 2.9-7.7 K/ML * FOR ADULT BLACK MALES AND FEMALES, NORMAL RBC,HGB, AND HCT IS 5% LESS SOURCE FOR DATA: [employer] 1800 OPERATION MANUAL( AUTOMATED BLOOD COUNTS AND DIFF.) APPENDIX B-3 RDW-CV 12.7 % 11.5-14.5 [facility] ([facility] CHRONIC KIDNEY DISEASE STAGING PER NKF: MALE GFR INTERPRETATION: 20-49 YRS: >60 mL/min Normal 50-59 YRS: >56 mL/min Normal 60-69 YRS: >49 mL/min Normal 70-79 YRS: >42 mL/min Normal 80 and above >35 mL/min Normal FEMALE GRF INTERPRETATION: 20-39 YRS: >60 mL/min Normal 40-49 YRS: >58 mL/min Normal 50-59 YRS: >51 mL/min Normal 60-69 YRS: >45 mL/min Normal 70-79 YRS: >39 mL/min Normal 80 and above >32 mL/min NormalNORMAL RANGES Age WBC RBC HGB HCT MCV PLT Adult M 4.1-10.9 4.20-6.30 12.0-18.0 37.0-51.0 80-97 140-440 Adult F 4.1-10.9 4.04-5.48 12.0-18.0 37.0-51.0 80-97 140-440 0- 1 Yr 5.0-20.0 3.9-5.9 15-18 MV: 44 MV: 91 MV: 277 2-9 Yr. 6.0-17.0 3.8-5.4 11-13 MV: 37 MV: 78 MV: 300 10 Yrs. 5.0-13.0 3.8-5.4 12-15 MV: 39 MV: 80 MV: 250 NOTE: * FOR ADULT BLACK MALES AND FEMALES, NORMAL WBC IS 2.9-7.7 K/ML * FOR ADULT BLACK MALES AND FEMALES, NORMAL RBC,HGB, AND HCT IS 5% LESS SOURCE FOR DATA: [employer] 1800 OPERATION MANUAL( AUTOMATED BLOOD COUNTS AND DIFF.) APPENDIX B-3 Lym% 24.3 % 10.0-58.5 [facility] ([facility] CHRONIC KIDNEY DISEASE STAGING PER NKF: MALE GFR INTERPRETATION: 20-49 YRS: >60 mL/min Normal 50-59 YRS: >56 mL/min Normal 60-69 YRS: >49 mL/min Normal 70-79 YRS: >42 mL/min Normal 80 and above >35 mL/min Normal FEMALE GRF INTERPRETATION: 20-39 YRS: >60 mL/min Normal 40-49 YRS: >58 mL/min Normal 50-59 YRS: >51 mL/min Normal 60-69 YRS: >45 mL/min Normal 70-79 YRS: >39 mL/min Normal 80 and above >32 mL/min NormalNORMAL RANGES Age WBC RBC HGB HCT MCV PLT Adult M 4.1-10.9 4.20-6.30 12.0-18.0 37.0-51.0 80-97 140-440 Adult F 4.1-10.9 4.04-5.48 12.0-18.0 37.0-51.0 80-97 140-440 0- 1 Yr 5.0-20.0 3.9-5.9 15-18 MV: 44 MV: 91 MV: 277 2-9 Yr. 6.0-17.0 3.8-5.4 11-13 MV: 37 MV: 78 MV: 300 10 Yrs. 5.0-13.0 3.8-5.4 12-15 MV: 39 MV: 80 MV: 250 NOTE: * FOR ADULT BLACK MALES AND FEMALES, NORMAL WBC IS 2.9-7.7 K/ML * FOR ADULT BLACK MALES AND FEMALES, NORMAL RBC,HGB, AND HCT IS 5% LESS SOURCE FOR DATA: [employer] 1800 OPERATION MANUAL( AUTOMATED BLOOD COUNTS AND DIFF.) APPENDIX B-3 Lym# 1.8 10E3/uL 0.6-4.1 [facility] ([facility] CHRONIC KIDNEY DISEASE STAGING PER NKF: MALE GFR INTERPRETATION: 20-49 YRS: >60 mL/min Normal 50-59 YRS: >56 mL/min Normal 60-69 YRS: >49 mL/min Normal 70-79 YRS: >42 mL/min Normal 80 and above >35 mL/min Normal FEMALE GRF INTERPRETATION: 20-39 YRS: >60 mL/min Normal 40-49 YRS: >58 mL/min Normal 50-59 YRS: >51 mL/min Normal 60-69 YRS: >45 mL/min Normal 70-79 YRS: >39 mL/min Normal 80 and above >32 mL/min NormalNORMAL RANGES Age WBC RBC HGB HCT MCV PLT Adult M 4.1-10.9 4.20-6.30 12.0-18.0 37.0-51.0 80-97 140-440 Adult F 4.1-10.9 4.04-5.48 12.0-18.0 37.0-51.0 80-97 140-440 0- 1 Yr 5.0-20.0 3.9-5.9 15-18 MV: 44 MV: 91 MV: 277 2-9 Yr. 6.0-17.0 3.8-5.4 11-13 MV: 37 MV: 78 MV: 300 10 Yrs. 5.0-13.0 3.8-5.4 12-15 MV: 39 MV: 80 MV: 250 NOTE: * FOR ADULT BLACK MALES AND FEMALES, NORMAL WBC IS 2.9-7.7 K/ML * FOR ADULT BLACK MALES AND FEMALES, NORMAL RBC,HGB, AND HCT IS 5% LESS SOURCE FOR DATA: [employer] 1800 OPERATION MANUAL( AUTOMATED BLOOD COUNTS AND DIFF.) APPENDIX B-3 Neut% 68.9 % 37.0-92.0 [facility] ([facility] CHRONIC KIDNEY DISEASE STAGING PER NKF: MALE GFR INTERPRETATION: 20-49 YRS: >60 mL/min Normal 50-59 YRS: >56 mL/min Normal 60-69 YRS: >49 mL/min Normal 70-79 YRS: >42 mL/min Normal 80 and above >35 mL/min Normal FEMALE GRF INTERPRETATION: 20-39 YRS: >60 mL/min Normal 40-49 YRS: >58 mL/min Normal 50-59 YRS: >51 mL/min Normal 60-69 YRS: >45 mL/min Normal 70-79 YRS: >39 mL/min Normal 80 and above >32 mL/min NormalNORMAL RANGES Age WBC RBC HGB HCT MCV PLT Adult M 4.1-10.9 4.20-6.30 12.0-18.0 37.0-51.0 80-97 140-440 Adult F 4.1-10.9 4.04-5.48 12.0-18.0 37.0-51.0 80-97 140-440 0- 1 Yr 5.0-20.0 3.9-5.9 15-18 MV: 44 MV: 91 MV: 277 2-9 Yr. 6.0-17.0 3.8-5.4 11-13 MV: 37 MV: 78 MV: 300 10 Yrs. 5.0-13.0 3.8-5.4 12-15 MV: 39 MV: 80 MV: 250 NOTE: * FOR ADULT BLACK MALES AND FEMALES, NORMAL WBC IS 2.9-7.7 K/ML * FOR ADULT BLACK MALES AND FEMALES, NORMAL RBC,HGB, AND HCT IS 5% LESS SOURCE FOR DATA: [employer] 1800 OPERATION MANUAL( AUTOMATED BLOOD COUNTS AND DIFF.) APPENDIX B-3 MXD% 6.8 % 0.1-24.0 [facility] ([facility] CHRONIC KIDNEY DISEASE STAGING PER NKF: MALE GFR INTERPRETATION: 20-49 YRS: >60 mL/min Normal 50-59 YRS: >56 mL/min Normal 60-69 YRS: >49 mL/min Normal 70-79 YRS: >42 mL/min Normal 80 and above >35 mL/min Normal FEMALE GRF INTERPRETATION: 20-39 YRS: >60 mL/min Normal 40-49 YRS: >58 mL/min Normal 50-59 YRS: >51 mL/min Normal 60-69 YRS: >45 mL/min Normal 70-79 YRS: >39 mL/min Normal 80 and above >32 mL/min NormalNORMAL RANGES Age WBC RBC HGB HCT MCV PLT Adult M 4.1-10.9 4.20-6.30 12.0-18.0 37.0-51.0 80-97 140-440 Adult F 4.1-10.9 4.04-5.48 12.0-18.0 37.0-51.0 80-97 140-440 0- 1 Yr 5.0-20.0 3.9-5.9 15-18 MV: 44 MV: 91 MV: 277 2-9 Yr. 6.0-17.0 3.8-5.4 11-13 MV: 37 MV: 78 MV: 300 10 Yrs. 5.0-13.0 3.8-5.4 12-15 MV: 39 MV: 80 MV: 250 NOTE: * FOR ADULT BLACK MALES AND FEMALES, NORMAL WBC IS 2.9-7.7 K/ML * FOR ADULT BLACK MALES AND FEMALES, NORMAL RBC,HGB, AND HCT IS 5% LESS SOURCE FOR DATA: [employer] DYN 1800 OPERATION MANUAL( AUTOMATED BLOOD COUNTS AND DIFF.) APPENDIX B-3 MPV 8.8 fL 9.0-13.0 Below low normal [facility] ( [facility] CHRONIC KIDNEY DISEASE STAGING PER NKF: MALE GFR INTERPRETATION: 20-49 YRS: >60 mL/min Normal 50-59 YRS: >56 mL/min Normal 60-69 YRS: >49 mL/min Normal 70-79 YRS: >42 mL/min Normal 80 and above >35 mL/min Normal FEMALE GRF INTERPRETATION: 20-39 YRS: >60 mL/min Normal 40-49 YRS: >58 mL/min Normal 50-59 YRS: >51 mL/min Normal 60-69 YRS: >45 mL/min Normal 70-79 YRS: >39 mL/min Normal 80 and above >32 mL/min NormalNORMAL RANGES Age WBC RBC HGB HCT MCV PLT Adult M 4.1-10.9 4.20-6.30 12.0-18.0 37.0-51.0 80-97 140-440 Adult F 4.1-10.9 4.04-5.48 12.0-18.0 37.0-51.0 80-97 140-440 0- 1 Yr 5.0-20.0 3.9-5.9 15-18 MV: 44 MV: 91 MV: 277 2-9 Yr. 6.0-17.0 3.8-5.4 11-13 MV: 37 MV: 78 MV: 300 10 Yrs. 5.0-13.0 3.8-5.4 12-15 MV: 39 MV: 80 MV: 250 NOTE: * FOR ADULT BLACK MALES AND FEMALES, NORMAL WBC IS 2.9-7.7 K/ML * FOR ADULT BLACK MALES AND FEMALES, NORMAL RBC,HGB, AND HCT IS 5% LESS SOURCE FOR DATA: [employer] DYN 1800 OPERATION MANUAL( AUTOMATED BLOOD COUNTS AND DIFF.) APPENDIX B-3 Neut# 5.3 % 2.0-7.8 [facility] CHRONIC KIDNEY DISEASE STAGING PER NKF: MALE GFR INTERPRETATION: 20-49 YRS: >60 mL/min Normal 50-59 YRS: >56 mL/min Normal 60-69 YRS: >49 mL/min Normal 70-79 YRS: >42 mL/min Normal 80 and above >35 mL/min Normal FEMALE GRF INTERPRETATION: 20-39 YRS: >60 mL/min Normal 40-49 YRS: >58 mL/min Normal 50-59 YRS: >51 mL/min Normal 60-69 YRS: >45 mL/min Normal 70-79 YRS: >39 mL/min Normal 80 and above >32 mL/min NormalNORMAL RANGES Age WBC RBC HGB HCT MCV PLT Adult M 4.1-10.9 4.20-6.30 12.0-18.0 37.0-51.0 80-97 140-440 Adult F 4.1-10.9 4.04-5.48 12.0-18.0 37.0-51.0 80-97 140-440 0- 1 Yr 5.0-20.0 3.9-5.9 15-18 MV: 44 MV: 91 MV: 277 2-9 Yr. 6.0-17.0 3.8-5.4 11-13 MV: 37 MV: 78 MV: 300 10 Yrs. 5.0-13.0 3.8-5.4 12-15 MV: 39 MV: 80 MV: 250 NOTE: * FOR ADULT BLACK MALES AND FEMALES, NORMAL WBC IS 2.9-7.7 K/ML * FOR ADULT BLACK MALES AND FEMALES, NORMAL RBC,HGB, AND HCT IS 5% LESS SOURCE FOR DATA: [employer] 1800 OPERATION MANUAL( AUTOMATED BLOOD COUNTS AND DIFF.) APPENDIX B-3 MXD# 0.5 10E3/uL 0.0-1.8 [facility] CHRONIC KIDNEY DISEASE STAGING PER NKF: MALE GFR INTERPRETATION: 20-49 YRS: >60 mL/min Normal 50-59 YRS: >56 mL/min Normal 60-69 YRS: >49 mL/min Normal 70-79 YRS: >42 mL/min Normal 80 and above >35 mL/min Normal FEMALE GRF INTERPRETATION: 20-39 YRS: >60 mL/min Normal 40-49 YRS: >58 mL/min Normal 50-59 YRS: >51 mL/min Normal 60-69 YRS: >45 mL/min Normal 70-79 YRS: >39 mL/min Normal 80 and above >32 mL/min NormalNORMAL RANGES Age WBC RBC HGB HCT MCV PLT Adult M 4.1-10.9 4.20-6.30 12.0-18.0 37.0-51.0 80-97 140-440 Adult F 4.1-10.9 4.04-5.48 12.0-18.0 37.0-51.0 80-97 140-440 0- 1 Yr 5.0-20.0 3.9-5.9 15-18 MV: 44 MV: 91 MV: 277 2-9 Yr. 6.0-17.0 3.8-5.4 11-13 MV: 37 MV: 78 MV: 300 10 Yrs. 5.0-13.0 3.8-5.4 12-15 MV: 39 MV: 80 MV: 250 NOTE: * FOR ADULT BLACK MALES AND FEMALES, NORMAL WBC IS 2.9-7.7 K/ML * FOR ADULT BLACK MALES AND FEMALES, NORMAL RBC,HGB, AND HCT IS 5% LESS SOURCE FOR DATA: [employer] 1800 OPERATION MANUAL( AUTOMATED BLOOD COUNTS AND DIFF.) APPENDIX B-3 ID Date Data Source [id number] 06/11/2019 10:14:00 AM EST [facility] ([facility] Name Value Range Interpretation Code Description Data Karla rce(s) Supporting Document(s) Thyrotropin [Units/volume] in Serum or Plasma 1.840 ulU/mL 0.60-4.8 [facility] ([facility] Procedure Social History Code Duration Value Status Description Data Source(s ) Smoking 07/07/2020 12:00:00 AM EST Never Smoker completed Never S moker eCW1 ([facility]) Smoking 07/07/2020 12:00:00 AM EST Never Smoker completed Never S moker eCW1 ([facility]) Smoking 06/04/2020 12:00:00 AM EST Never Smoker completed Never S moker eCW1 ([facility]) Smoking 06/04/2020 12:00:00 AM EST Never Smoker completed Never S moker eCW1 ([facility]) Smoking 05/08/2020 12:00:00 AM EST Never Smoker completed Never S moker eCW1 ([facility]) Smoking 05/08/2020 12:00:00 AM EST Never Smoker completed Never S moker eCW1 ([facility]) Smoking 08/07/2019 12:00:00 AM EST Patient has never smoked co mpleted Patient has never smoked [facility] ([facility] ) Vital Signs ID Date Data Source UNK Name Value Range Interpretation Code Description Data Source(s) Diastolic blood pressure 86 mm[Hg] 86 mm[Hg] eCW1 ([facility]) Systolic blood pressure 144 mm[Hg] 144 mm[Hg] e CW1 ([facility]) Body mass index (BMI) [Ratio] 23.43 kg/m2 23.43 kg/m2 eCW1 ([facility]) Body height 61 [in_i] 61 [in_i] eCW1 ([facility]) Body weight 124 [lb_av] 124 [lb_av] eCW1 ([facility]) Diastolic blood pressure 80 mm[Hg] 80 mm[Hg] eCW1 ([facility]) Systolic blood pressure 145 mm[Hg] 145 mm[Hg] e CW1 ([facility]) Body mass index (BMI) [Ratio] 23.24 kg/m2 23.24 kg/m2 W1 ([facility]) Body height 61 [in_i] 61 [in_i] eCW1 ([facility]) Body weight 55.79 kg 55.79 kg W1 ([facility]) Body weight 123 [lb_av] 123 [lb_av] eCW1 ([facility]) Diastolic blood pressure 80 mm[Hg] 80 mm[Hg] eCW1 ([facility]) Systolic blood pressure 132 mm[Hg] 132 mm[Hg] e CW1 ([facility]) Body mass index (BMI) [Ratio] 23.05 kg/m2 23.05 kg/m2 eCW1 ([facility]) Body height [in_i] eCW1 ([facility]) Body weight 123 [lb_av] 123 [lb_av] eCW1 ([facility]) Diastolic blood pressure 76 mm[Hg] 76 mm[Hg] eCW1 ([facility]) Systolic blood pressure 136 mm[Hg] 136 mm[Hg] e CW1 ([facility]) Body mass index (BMI) [Ratio] 22.86 kg/m2 22.86 kg/m2 W1 ([facility]) Body height [in_us] eCW1 ([facility]) Body weight Measured 122 [lb_av] 122 [lb_av] eC W1 ([facility]) Oxygen saturation in Arterial blood by Pulse oximetry 98 % 98 % [facility] ([facility] ([facility]), ([facility]) Body mass index (BMI) [Ratio] 23.4 kg/m2 23.4 k g/m2 [facility] ([facility] Body weight 126.00 [lb_av] 126.00 [lb_av] MED[facility] T ([facility] Body height 61.50 [in_i] 61.50 [in_i] [facility] ([facility] 5'1.50" Respiratory rate 16 /min 16 /min [facility] ( [facility] Heart rate 70 /min 70 /min [facility] ([facility] Body temperature 97.8 [degF] 97.8 [degF] [facility] ([facility] Diastolic blood pressure 60 mm[Hg] 60 mm[Hg] [facility] ([facility] Systolic blood pressure 100 mm[Hg] 100 mm[Hg] M EDENT ([facility] Oxygen saturation in Arterial blood by Pulse oximetry 99 % 99 % [facility] ([facility] ([facility]), ([facility]) Body mass index (BMI) [Ratio] 23.2 kg/m2 23.2 k g/m2 [facility] ([facility] Body weight 125.00 [lb_av] 125.00 [lb_av] MED[facility] T ([facility] Body height 61.50 [in_i] 61.50 [in_i] [facility] ([facility] 5'1.50" Respiratory rate 16 /min 16 /min [facility] ( [facility] Heart rate 97 /min 97 /min [facility] ([facility] Body temperature 97.5 [degF] 97.5 [degF] [facility] ([facility] Diastolic blood pressure 80 mm[Hg] 80 mm[Hg] [facility] ([facility] Systolic blood pressure 124 mm[Hg] 124 mm[Hg] M JAMILA ([facility] Body surface area 1.54 m2 1.54 m2 [facility]) Body mass index (BMI) [Ratio] 23.4 kg/m2 23.4 k g/m2 [facility] ([facility]) Body height 61 [in_i] 61 [in_i] [facility] ([facility]) 5'1" Body weight 56.246 kg 56.246 kg [facility] ([facility]) Body weight 124.00 [lb_av] 124.00 [lb_av] MED[facility] T ([facility]) Oxygen saturation in Arterial blood by Pulse oximetry 100 % 100 % [facility] ([facility]) Respiratory rate 20 /min 20 /min [facility] ( [facility]) Body temperature 98.6 [degF] 98.6 [degF] [facility] ([facility]) Heart rate 76 /min 76 /min [facility] ([facility]) Diastolic blood pressure 88 mm[Hg] 88 mm[Hg] [facility] ([facility]) Systolic blood pressure 126 mm[Hg] 126 mm[Hg] M [facility] ([facility]) Patient Treatment Plan of Care Planned Activity Planned Date Details Description Data Source (s) Estradiol 0.1 MG/ML Vaginal Cream 10/24/2019 12:00:00 AM EDT eCW1 ([facility])
[2020-08-01] MEDS ORDERED: D-40TAB2 PO (08:41)
[2020-08-01] MEDS ORDERED: ESTR0.1C5 (08:41)
[2020-08-01] MEDS ORDERED: FISH1000 PO (08:41)
[2020-08-01] MEDS ORDERED: CALC600T60 PO (08:41)
[2020-08-01] MEDS ORDERED: MIDAZOLAM INJ 2MG/2ML VIAL (J2250 PER 1MG) As Ordered ONE (08:48)
[2020-08-01] MEDS ORDERED: ONDANSETRON 4MG/2ML VIAL As Ordered ONE (08:48)
[2020-08-01] MEDS ORDERED: KETOROLAC 60MG 2ML VIAL As Ordered ONE (08:48)
[2020-08-01] MEDS ORDERED: dexameTHASONE 4 MG/ML 1ML VIAL (J1100 PER 1MG) As Ordered ONE (08:48)
[2020-08-01] MEDS ORDERED: LIDOCAINE 2% 100MG/5ML SDV (FOR ANES.) As Ordered ONE (08:48)
[2020-08-01] MEDS ORDERED: fentaNYL 100 MCG/2 ML INJECTION (J3010) As Ordered ONE (08:48)
[2020-08-01] MEDS ORDERED: propofoL 200 MG/20 ML VIAL As Ordered ONE (08:48)
[2020-08-01 08:50] LABS: HEMATOCRIT 40.7 % (36.0-47.0); HEMOGLOBIN 13.5 g/dl (12.0-15.5); MEAN CORPUSCULAR HEMOGLOBIN 30.3 pg (27.0-33.0); MEAN CORPUSCULAR HGB CONC 33.2 g/dl (32.0-36.5); MEAN CORPUSCULAR VOLUME 91.3 fl (80.0-96.0); PLATELET COUNT, AUTOMATED 275 10^3/uL (150-450); RED BLOOD COUNT 4.46 10^6/uL (4.00-5.40); WHITE BLOOD COUNT 7.3 10^3/uL (4.0-10.0)
[2020-08-01] MEDS ORDERED: LR 1,000 ML IV SCH (10:45)
[2020-08-01] MEDS ORDERED: PERCOCET 5MG/325MG TAB PO PRN (10:45)
[2020-08-01] MEDS ORDERED: oxyCODONE 5MG TAB PO PRN (10:45)
[2020-08-01] MEDS ORDERED: METOCLOPRAMIDE INJ 10MG/2ML VIAL (J2765 PER 1) IV PRN (10:45)
[2020-08-01] MEDS ORDERED: ONDANSETRON 4MG/2ML VIAL IV PRN (10:45)
[2020-08-01] MEDS ORDERED: fentaNYL 100 MCG/2 ML INJECTION (J3010) IV PRN (10:45)
--- NOTE | 2020-08-01 11:38 | ROOPDOC ---
[facility] Report Of Operation Report of Operation DATE OF PROCEDURE: 08/01/20 PREOPERATIVE DIAGNOSES: 1. Postmenopausal bleeding POSTOPERATIVE DIAGNOSES: 1. Endometrial polyp PROCEDURE PERFORMED: Hysteroscopy,myosure, dilation and curettage. SURGEON: Arielle Lyons MD [employer] INTERN: None. ANESTHESIA: General via laryngeal mask airway ESTIMATED BLOOD LOSS: 5ml IV FLUIDS: 900mL of lactated Ringer's solution. URINE OUTPUT: Not obtained. PREOPERATIVE ANTIBIOTICS: None. OPERATIVE FINDINGS: Anterior wall endometrial polyp. Bilateral ostia was visualized. DESCRIPTION OF PROCEDURE: After informed consent was obtained written consent was reviewed, the patient brought to operating room where she was placed under general anesthesia. She was then placed in lithotomy position and was prepped and draped in normal sterile fashion. Time-out in the operating room was then performed identifying the patient, procedure be performed as well as drug allergies. [place] speculum was placed revealing the cervix. Anterior lip of the cervix grasped with a single-tooth tenaculum. The uterus then sounded to 7cm. The cervix then sequentially dilated using Hanks dilators. Hysteroscope was then advanced through the cervical os and endometrial cavity was observed with the above-noted findings. Myosure was then advanced. Endometrial polyp was morcellated. Myosure device was removed. Hysteroscope was then removed. Sharp curette was then advanced through the cervical os to the level of the fundus and the uterus curetted in a 360 degree fashion. Tissue was obtained and this was sent to pathology for evaluation. The single-tooth tenaculum was then removed. Tenaculum sites were noted be h emostatic. The speculum was then removed. The patient was then taken out of lithotomy position, was awakened from general anesthesia and taken recovery in stable condition. ARIELLE LYONS MD. Aug 01, 2020 11:38
[2020-08-01 12:30] VITALS: BP 128/81
[2020-08-01] MEDS ORDERED: KETOROLAC 30 MG/ML 1ML VIAL IV SCH (16:30)
== END 2020-08-01 12:40 | disposition home or self-care (01) ==
LOC: M SDC 08:21
PROVIDERS: ATTEND Obstetrics & Gynecology
DX: N84.0 Polyp of corpus uteri (principal); N95.0 Postmenopausal bleeding; E03.9 Hypothyroidism, unspecified; Z79.899 Other long term (current) drug therapy; Z88.0 Allergy status to penicillin; Z88.2 Allergy status to sulfonamides; Z88.1 Allergy status to other antibiotic agents
CPT/HCPCS: 36415; 58558; 85027; 86850; 86900; 86901; 88305; J1100; J1885; J2250; J2405; J3010

== ENCOUNTER → 2020-10-23 | Outpatient (CLI) | payer MEDICARE, BC ==
[~2020-10-23] MED LIST changes: +CALC600T60 PO; +D-40TAB2 PO; +ESTR0.1C5; +FISH1000 PO; -LR 1,000 ML IV ONE
--- NOTE | 2020-10-23 11:38 | REPMRS ---
Patient History The patient states she had a clinical breast exam in September 2020 Patient is postmenopausal and had first child at age 34. Family history of breast cancer at age 66 in mother, prostate cancer at age 64 in brother. Took unspecified hormones for 8 years. Patient states no breast complaints today. Patient has signed MRS History Sheet. Digital Woman Screen Mammo: October 23, 2020 - Exam #: [id number] Bilateral CC and MLO view(s) were taken. Technologist: RT Susana Prior study comparison: October 24, 2019, bilateral digital woman screen mammo performed at [facility]. October 24, 2018, bilateral digital woman screen mammo performed at [facility]. FINDINGS: There are scattered fibroglandular densities. Screening. Digital screening (2D) mammography was performed bilaterally in the CC and MLO projections. Additionally, breast tomosynthesis (3D mammography) was performed bilaterally in the CC and MLO projections. Todays exam was compared to the prior exams(s). By history, the patient has no complaints of a palpable breast abnormality or other significant breast complaints. The breasts are unchanged in size and shape. There are no isidra-soft tissue densities or spiculated masses. There is no internal architectural distortion. There are no suspicious isidra-calcific clusters. Skin thickening or nipple retraction is not present. IMPRESSION: BI-RADS Category 2- Benign Findings(s). There is no evidence of malignant alteration of the breasts. Followup examination recommended in one year. The Volpara volumetric breast density category is B, there are scattered areas of fibroglandular density. This mammogram was read with the assistance of [facility] [employer],an FDA approved computer aided detection system for mammography. The lifetime Tyrer-Cuzick score is 17.5% Negative x-ray reports should not delay surgical consultation if a dominant or clinically suspicious mass is present. Not all breast cancers can be identified by mammography. Therefore, we recommend that you continue to perform regular breast self-examination and physical examination and then promptly contact your physician of any concerns or changes. Adenosis and dense breasts may obscure an underlying neoplasm. Assessment: BI-RADS/ACR category 2 mammogram. Benign Findings. Recommendation Routine screening mammogram of both breasts in 1 year. Electronically Signed By: Vincent Patel DO 10/23/20 1133
== END ==
LOC: M WHC 09:40
PROVIDERS: ATTEND Nurse Practitioner Women's Health
DX: Z01.419 Encounter for gynecological examination (general) (routine) without abnormal findings (principal); Z12.31 Encounter for screening mammogram for malignant neoplasm of breast; Z78.0 Asymptomatic menopausal state; Z80.3 Family history of malignant neoplasm of breast; Z92.29 Personal history of other drug therapy
CPT/HCPCS: 77063; 77067; G0101

== ENCOUNTER → 2021-10-30 | Outpatient (CLI) | payer MEDICARE, BC | LOC: M WHC 08:53 | PROVIDERS: ATTEND Obstetrics & Gynecology | DX: Z13.820 Encounter for screening for osteoporosis (principal); Z12.31 Encounter for screening mammogram for malignant neoplasm of breast; M85.851 Other specified disorders of bone density and structure, right thigh; M85.852 Other specified disorders of bone density and structure, left thigh; Z78.0 Asymptomatic menopausal state; Z80.3 Family history of malignant neoplasm of breast; Z80.42 Family history of malignant neoplasm of prostate; Z79.899 Other long term (current) drug therapy; Z92.29 Personal history of other drug therapy ==

== ENCOUNTER → 2022-11-08 | Outpatient (CLI) | payer MEDICARE, BC | LOC: M WHC 09:22 | PROVIDERS: ATTEND Obstetrics & Gynecology | DX: Z01.419 Encounter for gynecological examination (general) (routine) without abnormal findings (principal); Z12.31 Encounter for screening mammogram for malignant neoplasm of breast; N95.2 Postmenopausal atrophic vaginitis | CPT/HCPCS: 77063; 77067; G0101 ==

== ENCOUNTER → 2023-11-10 | Outpatient (CLI) | payer MEDICARE, BC | LOC: M WHC 10:24 | PROVIDERS: ATTEND Obstetrics & Gynecology | DX: Z12.31 Encounter for screening mammogram for malignant neoplasm of breast (principal); R92.333 Mammographic heterogeneous density, bilateral breasts ==

== ENCOUNTER → 2023-11-10 | Outpatient (CLI) | payer MEDICARE, BC | LOC: M WHC 10:25 | PROVIDERS: ATTEND Obstetrics & Gynecology | DX: M85.851 Other specified disorders of bone density and structure, right thigh (principal); M85.852 Other specified disorders of bone density and structure, left thigh; Z13.820 Encounter for screening for osteoporosis; Z12.31 Encounter for screening mammogram for malignant neoplasm of breast; R92.333 Mammographic heterogeneous density, bilateral breasts ==

== ENCOUNTER → 2025-01-24 | Outpatient (CLI) | payer MEDICARE, BC | LOC: M WHC 09:40 | PROVIDERS: ATTEND Advanced Practice Midwife | DX: Z12.31 Encounter for screening mammogram for malignant neoplasm of breast (principal); R92.333 Mammographic heterogeneous density, bilateral breasts ==